=== PATIENT | female | born 1995 | race Caucasian/White ===

== ENCOUNTER → 2020-08-15 10:21 | Outpatient (BNVA) | payer BC, MEDICAID, SELFPAY | PROVIDERS: PCP Internal Medicine; Visit Provider Internal Medicine | DX: F11.99 Opioid use, unspecified with unspecified opioid-induced disorder (principal) | CPT/HCPCS: 80305 ==

== ENCOUNTER → 2020-08-21 11:23 | Outpatient (BNVA) | payer BC, MEDICAID, SELFPAY | PROVIDERS: Visit Provider Advanced Practice Midwife ==

== ENCOUNTER 2020-08-25 10:00 | Outpatient (REF) | payer BC, MEDICAID, SELFPAY ==
[2020-08-29 08:40] LABS: Fentanyl, Ur >500.0
[2020-08-29 08:41] LABS: Norfentanyl, Ur >500.0
== END 2020-08-25 10:01 | disposition home or self-care (01) ==
LOC: HO.LAB 10:00
PROVIDERS: Visit Provider Internal Medicine
DX: F11.99 Opioid use, unspecified with unspecified opioid-induced disorder (principal)
CPT/HCPCS: 80305; 80354

== ENCOUNTER → 2020-09-01 14:25 | Outpatient (BNVA) | payer BC, MEDICAID, SELFPAY | PROVIDERS: Visit Provider Internal Medicine ==

== ENCOUNTER → 2020-10-08 08:37 | Outpatient (BNVA) | payer BC, MEDICAID, SELFPAY | PROVIDERS: Visit Provider Advanced Practice Midwife ==

== ENCOUNTER 2021-02-11 21:49 | Emergency (ER) | payer MEDICAID, SELFPAY ==
--- NOTE | 2021-02-11 21:54 | ED_ITS ---
HPI - Overdose General Chief Complaint: Overdose Stated Complaint: overdose Time Seen by Provider: 02/11/21 21:54 Source: patient and EMS Mode of arrival: EMS Limitations: no limitations and other History of Present Illness MD complaint: accidental overdose Onset (ago): minute(s) Timing confirmed by: spouse Context: Accidental Overdose: wanted to get high Associated symptoms: nausea/vomiting Treatments Prior to Arrival: oxygen (bagged) and narcan (8mg IN by PD) Related Data Previous Rx's Medication Instructions Recorded naloxone 4 mg/actuation nasal 4 mg INTRANASAL Q2M PRN #2 ea 08/15/20 spray (Narcan) medroxyprogesterone 150 mg/mL 150 mg IM [id number] #1 ml 08/21/20 intramuscular suspension (Depo-Provera) valacyclovir 500 mg tablet 500 mg PO BID PRN 3 Days #30 tab 08/21/20 (Valtrex) buprenorphine 8 mg-naloxone 2 mg 2 film SUBLINGUAL DAILY 5 Days #10 09/01/20 sublingual film (Suboxone) ea lamotrigine 100 mg tablet 100 mg PO DAILY 90 Days #90 tab 09/11/20 (Lamictal) mirtazapine 30 mg tablet (Remeron) 30 mg PO BEDTIME 90 Days #90 tab 09/11/20 prazosin 2 mg capsule 4 mg PO BEDTIME 90 Days #180 cap 09/11/20 risperidone 0.5 mg tablet 0.5 mg PO DAILY PRN 90 Days #90 tab 09/11/20 risperidone 1 mg tablet 1 mg PO DAILY 90 Days #90 tab 09/11/20 risperidone 3 mg tablet 3 mg PO BEDTIME 90 Days #90 tab 09/11/20 propranolol 10 mg tablet 30 mg PO TID 30 Days #270 tab 10/10/20 Allergies Allergy/AdvReac Type Severity Reaction Status Date / Time No Known Allergies Allergy Verified 08/25/20 10:25 [No Known Allergies*] Review of Systems Review of Systems: Constitutional : No Weight loss, No Fever, No Chills, No Fatigue, No Malaise ENT/Mouth : No sore throat, No Rhinorrhea Eyes: No Eye Pain, No Swelling, No Redness Cardiovascular : No Chest Pain, No SOB, No Dyspnea on Exertion, No Orthopnea, No Edema, No Palpitations Respiratory : No Cough, No Sputum, No Wheezing Gastrointestinal : pos Nausea, No Vomiting, No Diarrhea, No Constipation, No abdominal Pain, No Hematochezia, No Melena Genitourinary : No Dysuria, No Urinary Frequency, No Hematuria, Musculoskeletal : No joint pain, No Myalgias, No Joint Swelling Skin : No Skin Lesions, No rash Neuro : No Weakness, No Numbness, No Dizziness, No Headache Psych : No Anxiety/Panic, No Depression, no SI Heme/Lymph: No Bruising, No Bleeding,No Lymphadenopathy Endocrine : No Polyuria, No Polydipsia All other systems reviewed and are negative [facility] Past Medical History Attestation statement: The following information was validated with the patient. Medical History Contraceptive management Depression HSV-1 (herpes simplex virus 1) infection Opioid use disorder Family History Family History Father Heart disease Thyroid cancer Mother No problems noted. Paternal Grandfather Cancer Maternal Grandfather Cancer Paternal Grandmother Cancer Social History Social History (Updated 02/11/21 @ 22:26 by Maria L Ervin DO) Alcohol intake: never Patient Tobacco Use Status: Current everyday Tobacco user Cigarette Packs Per Day: 1 Use of substances other than those prescribed or required for medical reasons: Yes Substance Use Type: Opiates Substance Use Frequency Other:: Joyce recently attended a detox and is scheduled to begin [facility] 02/12 Advance Directives: No Physical Exam Vital Signs: Vital Signs: Last Vital Signs Temp 97.9 F 02/11/21 22:01 Pulse 100 02/11/21 22:01 Resp 16 02/11/21 22:01 BP 112/71 02/11/21 22:01 Pulse Ox 98 02/11/21 22:01 BMI result Body Mass Index 18.3 Appearance: Alert. Oriented X3. No acute distress. Eyes: Pupils equal, round and reactive to light. ENT: Pharynx normal. Neck: Normal inspection. Neck supple. CVS: Normal heart rate and rhythm. Pulses normal. Redness noted to chest wall from sternal rub Respiratory: No respiratory distress. Breath sounds normal. Abdomen: Soft and nontender. Skin: Skin warm and dry. Normal skin color. Normal skin turgor. Extremities: No lower extremity edema. No calf ttp Neuro: Oriented X 3. No motor deficit. No sensory deficit. Course Course Course Narrative: spoke to recovery coaches has PHP tomorrow and plans to follow up with [facility] tomorrow normal O2 no need for repeat narcan in ED given narcan to go home with MDM - Overdose MDM Narrative Medical decision making narrative: 25 yo female with hx of opiate abuse here after accidental overdose - denies SI. She has good outpatient support but is not on MAT. Would talk to someone about possibly starting suboxone. At this time will observe in the ED and give ODT zofran as she reports some nausea. Dispo per observation. Discharge Plan Discharge Clinical Impression: Opiate overdose Patient Disposition: Home, Self-Care Instructions: Adult Overdose (ED) Additional Instructions: return to ED for any worsening symptoms or concerns please follow up with [facility] Prescriptions: No Action buprenorphine-naloxone [Suboxone] 8-2 mg film 2 film sublingual DAILY 5 Days Qty: 10 RF: 0 lamotrigine [Lamictal] 100 mg tablet 100 mg PO DAILY 90 Days Qty: 90 RF: 1 mirtazapine [Remeron] 30 mg tablet 30 mg PO BEDTIME 90 Days Qty: 90 RF: 0 prazosin 2 mg capsule 4 mg PO BEDTIME 90 Days Qty: 180 RF: 0 risperidone 3 mg tablet 3 mg PO BEDTIME 90 Days Qty: 90 RF: 0 risperidone 0.5 mg tablet 0.5 mg PO DAILY PRN (Reason: depression) 90 Days Qty: 90 RF: 0 risperidone 1 mg tablet 1 mg PO DAILY 90 Days Qty: 90 RF: 0 propranolol 10 mg tablet 30 mg PO TID 30 Days Qty: 270 RF: 0 Narcan 4 mg/actuation spray,non-aerosol 4 mg intranasal Q2M PRN (Reason: opioid overdose) Qty: 2 RF: 0 medroxyprogesterone [Depo-Provera] 150 mg/mL suspension 150 mg IM [id number] Qty: 1 RF: 3 valacyclovir [Valtrex] 500 mg tablet 500 mg PO BID PRN (Reason: antiviral) 3 Days Qty: 30 RF: 1
[2021-02-11 22:01] VITALS: BP 100/66; BP 112/71; PULSE 100; PULSE 110; RESP 16; TEMP 36.6; O2SAT 98; BMI 18.3
[2021-02-11] MEDS: Ondansetron ODT 4 MG TAB.RAPDIS TRANSLINGU (22:39)
--- NOTE | 2021-02-11 22:55 | MHC.CARE ---
CARE team met with pt for SUDE. Pt reports appears drowsy, but willing to talk about treatment options. She discusses that she starts PHP tomorrow- it is telehealth and reports that she doesn't recall where but she has to call in tomorrow morning. Pt is interested in suboxone and she wants to go to [facility] as it is closer to her house. Pt reports she has a therapist and psychiatrist. She was unwilling to discuss further. Pt was advised to contact [facility] tomorrow and if she has any questions she can call the CARE team to connect her with the recovery team.
[2021-02-12] MEDS: Naloxone HCl Nasal TAKE HOME 4 MG SPRAY NOSTRILALT (01:32)
--- NOTE | 2021-02-12 01:45 | PC.NURSE ---
I assumed care of this pt upon her arrival via EMS. On arrival she was awake, drowsy but otherwise alert and oriented x 3. She was calm and cooperative, makes eye contact with RN and denies SI/HI Since she arrived she has maintained a room air O2 sat of 95% or better. her RR has remained WNL (12-16), there hs not been cyanosis and the pt has not required any stimulation to remain alert and oriented x 3. her ex boyfriend has been present with her and she has met with the CARE team who is aware that she will begin PHP treatment tomorrow. iAyt this time she is discharged. She has taken PO food and fluids without difficulty. her gait is safe and steady. She verbalized an understanding of all DC orders. The pt and her ex boyfriend were instructed on how to use Narcan intranasally and they both demonstrated an understanding for its proper use. .
== END 2021-02-12 01:45 | disposition home or self-care (01) ==
PROVIDERS: Emergency Provider Emergency Medicine
DX: T40.1X1A Poisoning by heroin, accidental (unintentional), initial encounter (principal); Y92.9 Unspecified place or not applicable; Z79.899 Other long term (current) drug therapy; Z71.51 Drug abuse counseling and surveillance of drug abuser; Z87.891 Personal history of nicotine dependence
CPT/HCPCS: 99283; 99285

== ENCOUNTER 2021-05-09 16:06 | Emergency (ER) | payer BC, MEDICAID, SELFPAY ==
[2021-05-09 16:26] VITALS: BP 143/91; PULSE 95; RESP 16; TEMP 36.6; O2SAT 97; BMI 27.4
== END 2021-05-09 19:33 | disposition left against medical advice (07) ==
PROVIDERS: Emergency Provider Emergency Medicine
DX: R13.10 Dysphagia, unspecified (principal)
CPT/HCPCS: 99281; 99282

== ENCOUNTER 2021-05-27 13:32 | Inpatient (IN) | payer OTHER, SELFPAY ==
--- NOTE | 2021-05-27 | ECG_ITS ---
Test Reason : MED CLEARANCE Blood Pressure : / mmHG Vent. Rate : 083 BPM Atrial Rate : 083 BPM P-R Int : 156 ms QRS Dur : 078 ms QT Int : 374 ms P-R-T Axes : 036 082 063 degrees QTc Int : 439 ms Normal sinus rhythm Early repolarization Normal ECG When compared with ECG of 01-DEC-2016 13:15, No significant change was found Referred By: Tim Patricia Electronically Signed By:HUSSEIN SANDOVAL
--- NOTE | ~2021-05-27 | XR_ITS ---
EXAMINATION: XR hand wrist LT CLINICAL INFORMATION: Point tenderness. The location of the point tenderness was not provided. COMPARISON: None. TECHNIQUE: 3 views of the left hand and wrist. FINDINGS: 5 mm negative ulnar variance. 2 linear metallic opacities are seen in the lateral volar soft tissues. These could represent radiopaque foreign bodies such as needle fragments. Diffuse osteopenia. No fracture or dislocation. Normal mineralization and alignment. XR/XR hand wrist LT IMPRESSION: No acute osseous abnormality. 2 linear metallic opacities are seen in the lateral volar soft tissues measuring 6 mm and 9 mm in length. These could represent radiopaque foreign bodies such as needle fragments.
--- NOTE | 2021-05-27 13:48 | ED_ITS ---
HPI - Psych General Chief Complaint: Psychiatric Symptoms Stated Complaint: CRISIS,UNCOOPERATIVE Time Seen by Provider: 05/27/21 13:34 Source: patient Mode of arrival: EMS Limitations: other (agitated) History of Present Illness MD complaint: other (paranoid, possible drug abuse, not taking medications, flashbacks, agitated, not sleeping) Onset (ago): week(s) (3) Duration: getting worse History of same: Yes Relieving factors: none Context: not taking psychiatric medications Associated psychiatric symptoms: racing thoughts Associated symptoms: insomnia Treatments prior to arrival: placed on mental health hold (S12 inpatient bed se arch) Related Data Previous Rx's Medication Instructions Recorded naloxone 4 mg/actuation nasal 4 mg INTRANASAL Q2M PRN #2 ea 08/15/20 spray (Narcan) medroxyprogesterone 150 mg/mL 150 mg IM [id number] #1 ml 08/21/20 intramuscular suspension (Depo-Provera) valacyclovir 500 mg tablet 500 mg PO BID PRN 3 Days #30 tab 08/21/20 (Valtrex) buprenorphine 8 mg-naloxone 2 mg 2 film SUBLINGUAL DAILY 5 Days #10 09/01/20 sublingual film (Suboxone) ea lamotrigine 100 mg tablet 100 mg PO DAILY 90 Days #90 tab 09/11/20 (Lamictal) mirtazapine 30 mg tablet (Remeron) 30 mg PO BEDTIME 90 Days #90 tab 09/11/20 prazosin 2 mg capsule 4 mg PO BEDTIME 90 Days #180 cap 09/11/20 risperidone 0.5 mg tablet 0.5 mg PO DAILY PRN 90 Days #90 tab 09/11/20 risperidone 1 mg tablet 1 mg PO DAILY 90 Days #90 tab 09/11/20 risperidone 3 mg tablet 3 mg PO BEDTIME 90 Days #90 tab 09/11/20 propranolol 10 mg tablet 30 mg PO TID 30 Days #270 tab 10/10/20 Allergies Allergy/AdvReac Type Severity Reaction Status Date / Time No Known Allergies Allergy Verified 08/25/20 10:25 [No Known Allergies*] Review of Systems Review of Systems: ROS unable to be obtained due to agitation PMFSH Past Medical History Attestation statement: The following information was validated with the patient. Medical History Contraceptive management Depression HSV-1 (herpes simplex virus 1) infection Opioid use disorder Family History Family History Father Heart disease Thyroid cancer Mother No problems noted. Paternal Grandfather Cancer Maternal Grandfather Cancer Paternal Grandmother Cancer Social History Social History Alcohol intake: never Patient Tobacco Use Status: Current everyday Tobacco user Cigarette Packs Per Day: 1 Substance Use Type: Opiates Advance Directives: Yes Advance Directives on File: Yes Advance Directives Date on File: 05/27/21 Physical Exam Vital Signs: Vital Signs: Last Vital Signs Temp 98.7 F 05/27/21 13:55 Pulse 70 05/27/21 13:55 Resp 14 05/27/21 13:55 BP 143/70 H 05/27/21 13:55 Pulse Ox 98 05/27/21 13:55 BMI result Body Mass Index 26.6 Appearance: Alert. Oriented X3. No acute distress. Agitated intermittently crying then somewhat sedated appears under the influence Eyes: Pupils equal, round and reactive to light. 3mm ENT: Pharynx normal. Neck: Normal inspection. Neck supple. CVS: Normal heart rate and rhythm. Pulses normal. Respiratory: No respiratory distress. Breath sounds normal. Abdomen: Atraumatic Skin: Skin warm and dry. Normal skin color. Normal skin turgor. ? bruising in R AC no abscess seen Extremities: No lower extremity edema. Neuro: Oriented X 3. No motor deficit. No sensory deficit. Will not participate in neuro exam for CN Course Course Course Narrative: Physician observation started at 222pm Patient placed in physician observation because the patient needed more time for medical clearance and bed placement after inpatient bed search. At the time observation was started the patient's vitals were stable, patient is alert and oriented but slightly agitated, Neuro: nonfocal, CV RRR, Lungs clear signed out pending labs and workup to oncoming provider MDM - Psych MDM Narrative Medical decision making narrative: 26 yo female with hx of depression, PTSD, substance abuse issues here with c/o not taking medications and having flashbacks. She was seen by [facility] in the community, refused medications per their note, paranoid, disoriented at times, high risk behaviors - she is already section 12. Will medically clear the patient. PO ativan for her anxiety Lab Data Labs: Lab Results 05/27/21 Range/Units 13:35 COVID-19 ([facility]) Negative (Negative) COVID-19 Clin Com See Note Discharge Plan Discharge Clinical Impression: Acute anxiety, Chronic post-traumatic stress disorder, Medical non-compliance Patient Disposition: Still a Patient Prescriptions: No Action buprenorphine-naloxone [Suboxone] 8-2 mg film 2 film sublingual DAILY 5 Days Qty: 10 0RF lamotrigine [Lamictal] 100 mg tablet 100 mg PO DAILY 90 Days Qty: 90 1RF mirtazapine [Remeron] 30 mg tablet 30 mg PO BEDTIME 90 Days Qty: 90 0RF prazosin 2 mg capsule 4 mg PO BEDTIME 90 Days Qty: 180 0RF risperidone 3 mg tablet 3 mg PO BEDTIME 90 Days Qty: 90 0RF risperidone 0.5 mg tablet 0.5 mg PO DAILY PRN (Reason: depression) 90 Days Qty: 90 0RF risperidone 1 mg tablet 1 mg PO DAILY 90 Days Qty: 90 0RF propranolol 10 mg tablet 30 mg PO TID 30 Days Qty: 270 0RF Narcan 4 mg/actuation spray,non-aerosol 4 mg intranasal Q2M PRN (Reason: opioid overdose) Qty: 2 0RF Rx Instructions: spray 1 dose into ONE nostril; alternate nostrils w each dose until help arrives medroxyprogesterone [Depo-Provera] 150 mg/mL suspension 150 mg IM [id number] Qty: 1 3RF valacyclovir [Valtrex] 500 mg tablet 500 mg PO BID PRN (Reason: antiviral) 3 Days Qty: 30 1RF Rx Instructions: take with onset on of symptoms, take for three days, may repeat dosing per episode prn
--- NOTE | 2021-05-27 13:52 | PC.NURSE ---
CHIKI/MARYJO HARRELL [phone] WITH ANY INFO OR QUESTIONS
[2021-05-27 13:55] VITALS: BP 143/70; PULSE 70; RESP 14; TEMP 37.1; O2SAT 98; BMI 26.6
[2021-05-27 14:13] LABS: COVID-19 Test Negative (Negative)
--- NOTE | 2021-05-27 16:20 | PC.NURSE ---
pt refused to have labs drawn when approached by t/w. will reapproach later. rn leatha aware.
[2021-05-27] MEDS: LORazepam 1 MG TABLET PO (18:01)
[2021-05-27 20:28] LABS: UPreg QC Valid YES; Urine Pregnancy NEGATIVE (NEGATIVE)
[2021-05-27 20:42] LABS: Amphetamine Screen Urine Not Detected (Not Detect); Barbiturates, Urine Not Detected (Not Detect); Benzodiazepines Screen Urine POSITIVE (Not Detect); Cannabinoid Screen Urine POSITIVE (Not Detect); Cocaine Screen Urine POSITIVE (Not Detect); Fentanyl, urine Not Detected (Not Detect); Opiate Screen Urine Not Detected (Not Detect); Phencyclidine Screen Urine Not Detected (Not Detect)
[2021-05-27 20:59] LABS: Appearance Urine TURBID; Color Urine YELLOW; Glucose Urine UA NEG (NEG); Leukocyte Esterase Urine 1+ (NEG); Nitrite Urine NEG (NEG); UACC Culture Trigger YES; Urine Blood 3+ (NEG); Urine Ketones NEG (NEG); Urine Protein 1+ MG/DL (NEG-TRACE)
[2021-05-27 21:10] LABS: Amorphous Sediment Urine 4+ /LPF; Bacteria Urine 1+ /LPF; Mucus Urine 3+ /LPF; RBC Urine 0-2 /HPF (0); Squamous Epithelial Cell Urine 3+ /LPF
[2021-05-27 21:36] LABS: MANUAL DIFF FLAG NO
[2021-05-27 21:40] LABS: Basophils Percent Auto 0.2 % (0-2); Eosinophils Absolute Auto 0.2 X10*3/uL (0.0-0.4); Eosinophils Percent Auto 1.9 % (0-4); Hematocrit 40.4 % (37.0-47.0); Hemoglobin 13.4 g/dl (12.0-16.0); Imm Gran Abs Auto 0.01 X10*3/uL (0.00-0.03); Imm Gran Pct Auto 0.1 % (0.0-0.4); Lymphocytes Absolute Auto 2.6 X10*3/uL (1.2-4.9); Lymphocytes Percent Auto 32.1 % (20-40); Mean Corpuscular HGB Conc 33.2 g/dl (31.0-35.0); Mean Corpuscular Hemoglobin 30.7 pg (27.0-33.0); Mean Corpuscular Volume 92.4 fL (80.0-98.0); Mean Platelet Volume 11.3 fL (9.4-12.3); Monocytes Absolute Auto 0.7 X10*3/uL (0.1-1.2); Monocytes Percent Auto 8.9 % (2-11); Neutrophils Absolute Auto 4.6 x10*3/uL (2.0-8.3); Neutrophils Percent Auto 56.8 % (45-73); Platelet Count 233 X10*3/uL (160-400); Red Blood Count 4.37 X10*6/uL (4.20-5.50); Red Cell Distribution Width 12.4 % (11.0-16.0); White Blood Count 8.1 X10*3/uL (4.8-10.8)
[2021-05-27 21:53] LABS: Ethanol < 10 mg/dL
[2021-05-27 21:57] LABS: Alanine Aminotransferase 12 U/L (0-31); Albumin Level 3.9 g/dL (3.5-5.0); Alkaline Phosphatase 49 U/L (39-117); Anion Gap 12 (12-20); Aspartate Amino Transferase 11 U/L (5-31); Bilirubin Direct < 0.2 mg/dL (0.0-0.5); Bilirubin Total < 0.2 mg/dL (0.0-1.0); Blood Urea Nitrogen 8 mg/dL (9-16); Calcium 9.1 mg/dL (8.4-10.2); Carbon Dioxide 25 mmol/L (22-29); Chloride 107 mmol/L (96-108); Creatinine Clr Calc Pharmacy 101.8; Estimated Glomerular Filt Rate > 60; Glucose Random 93 mg/dL (60-115); Sodium 140 mmol/L (135-145); Total Protein 6.3 g/dL (6.5-8.0)
[2021-05-27 23:06] VITALS: BP 113/65; PULSE 80; RESP 18; TEMP 36.7; O2SAT 97
--- NOTE | 2021-05-28 01:08 | PC.ADMIT ---
Pt is a 26y/o female admitted on CV for Inpatient Level of care after Pt was evaluated in the community and found to be unsafe due to Disorganized thoughts and continued aggression. Pt had to be restraint while being transported to [facility] secondary to increased aggression with the police. Pt's father reports that pt is convinced that some people are in the basement looking for her and walking in the driveway. Pt had been off her meds for 3weeks and had relapsed on substances. Pt alert and sleepy, Vital signs stable. Pt is Covid negative, Tox positive for: Cocaine, Marijuana, Benzos. Pt is sleepy and therefore makes it difficult to get admission assessment completed with her. Speech is normal with normal tone, rhythm and curt. Pt denies SI/Hi at this time. Low depression reported. admission orders obtained.
[2021-05-28 01:26] VITALS: BP 113/65; PULSE 80; RESP 18; TEMP 36.7; O2SAT 97
[2021-05-28] MEDS: risperiDONE 1 MG TABLET PO (02:26)
[2021-05-28 09:21] LABS: Alanine Aminotransferase 11 U/L (0-31); Albumin Level 3.7 g/dL (3.5-5.0); Alkaline Phosphatase 46 U/L (39-117); Anion Gap 12 (12-20); Aspartate Amino Transferase 12 U/L (5-31); Bilirubin Total 0.3 mg/dL (0.0-1.0); Blood Urea Nitrogen 10 mg/dL (9-16); Carbon Dioxide 22 mmol/L (22-29); Chloride 110 mmol/L (96-108); Cholesterol 119 mg/dL; Creatinine Clr Calc Pharmacy 109.6; Estimated Glomerular Filt Rate > 60; Glucose Fasting 90 mg/dL (60-99); HDL Cholesterol 30 mg/dL; LDL Cholesterol Calculated 77 mg/dl; Potassium 4.3 mmol/L (3.3-5.1); Sodium 140 mmol/L (135-145); Total Protein 6.1 g/dL (6.5-8.0); Triglycerides 62 mg/dL
[2021-05-28 10:59] LABS: Reflex LDLD? No
[2021-05-28 12:00] VITALS: BP 182/80; PULSE 86; TEMP 36.8
[2021-05-28] MEDS: Acetaminophen 325 MG TABLET 650 MG PO ×2 (12:47→21:17)
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
--- NOTE | 2021-05-28 13:56 | PC.NURSE ---
pt signed 3 day notice, up 06/02
[2021-05-28 16:00] VITALS: BP 110/68; PULSE 80; RESP 16; TEMP 37.4
[2021-05-28] MEDS: ARIPiprazole 10 MG TABLET PO (18:43)
[2021-05-28 20:00] VITALS: BP 105/59; PULSE 95; RESP 16; TEMP 37.4; O2SAT 98
[2021-05-28] MEDS: hydrOXYzine HCL 25 MG TABLET PO (21:17)
[2021-05-28] MEDS: Nicotine Polacrilex 2 MG GUM 4 MG BUCCAL (22:27)
--- NOTE | 2021-05-28 22:45 | PC.NURSE ---
Pt declined to provide urine sample , declined to sign legal paper work
[2021-05-29 06:57] VITALS: BP 104/68; PULSE 72; RESP 14; TEMP 36.9; O2SAT 97
[2021-05-29] MEDS: ARIPiprazole 15 MG TABLET PO (09:31)
[2021-05-29] MEDS: Propranolol HCL 10 MG TABLET PO ×2 (09:31→15:45)
[2021-05-29 12:00] VITALS: BP 98/54; PULSE 94; TEMP 36.7
[2021-05-29] MEDS: Nicotine Polacrilex 2 MG GUM 4 MG BUCCAL (13:02)
[2021-05-29 14:59] LABS: UPreg QC Valid YES; Urine Pregnancy NEGATIVE (NEGATIVE)
[2021-05-29] MEDS: Acetaminophen 325 MG TABLET 650 MG PO (18:04)
--- NOTE | 2021-05-29 19:38 | HO.PSYCHPN ---
Subjective Subjective Date of Service: 05/29/21 Reason For Visit: Psychosis Interim History: Patient seen and discussed with team. I evaluated the pt this evening and upon inquiry, pt wants to know why she is no longer on lamictal or buspar and asks for her previous med regimen to be restored, as she reports positive benefit. Per pt, she currently has high anxiety and she is shaky, tearful, says she feels like she is ?crawling out of my skin.?. Discloses that prior to coming to [facility], she was taking a friend?s benzodiazepine prescription, using 20 mg valium every six hours, likely in withdrawal from benzos.? In the milieu, patient is safe and appropriate in behavior. Denies SI/SIB/HI upon inquiry. Denies irritability or assaultive ideation. Says he feels safe. Medication Compliance: Yes Side effects from medications: No Attending Groups: No Review of Systems Acute medical concerns: No Medical Review of Systems: unchanged Mental Status Exam Mental Status Exam Narrative: Pt is alert and oriented; behavior is anxious, agitated; patient is not in distress; dressed in hospital gown, disheveled; mood is described as not good; minimal eye contact appropriate; Speech is normal rate, volume and prosody and not pressured; no psychomotor agitation/retardation present; thought process is organized and goal directed; Thought content is on tx; otherwise pertinent to relevant topics and without any delusional content, paranoid ideations or grandiosity; denies any SI/HI. There is no evidence of perceptual disturbance. ?Patients insight and judgment are impaired but likely adequate. Diagnostics Vital Signs (24Hr): Vital Signs - 24 hr 05/28/21 20:00 05/29/21 06:57 05/29/21 12:00 Temperature 99.3 F 98.4 F 98.1 F Pulse Rate 95 72 94 Respiratory Rate 16 14 Blood Pressure 105/59 L 104/68 98/54 L Pulse Oximetry 98 97 BMI result Body Mass Index 26.6 Labs Results: 05/27/21 21:31 05/28/21 08:13 Labs: Laboratory Results - last 48 hr 05/27/21 05/27/21 05/27/21 20:14 20:14 20:14 WBC RBC Hgb Hct MCV MCH MCHC RDW Plt Count MPV Immature Gran % (Auto) Neut % (Auto) Lymph % (Auto) [place] % (Auto) Eos % (Auto) Baso % (Auto) Lymph # (Auto) [place] # (Auto) Eos # (Auto) Baso # (Auto) Abs Immat Gran (auto) Absolute Neuts (auto) Absolute Nucleated RBC Nucleated RBC % (auto) Sodium Potassium Chloride Carbon Dioxide Anion Gap BUN Creatinine Estim Creat Clear Calc Estimated GFR Random Glucose Fasting Glucose Calcium Total Bilirubin Direct Bilirubin AST ALT Alkaline Phosphatase Total Protein Albumin Triglycerides Cholesterol LDL Cholesterol, Calc HDL Cholesterol Urine Color YELLOW Urine Appearance TURBID Urine pH 7.0 Ur Specific [place] 1.010 Urine Protein 1+ H Urine Glucose (UA) NEG Urine Ketones NEG Urine Blood 3+ H Urine Nitrite NEG Ur Leukocyte Esterase 1+ H Urine RBC 0-2 Urine WBC 10-14 H Ur Squamous Epith Cells 3+ Amorphous Sediment 4+ Urine Bacteria 1+ Granular Casts 1-4 Urine Mucus 3+ Urine Test NEGATIVE Urine Opiates Screen Not Detected Urine Fentanyl Screen Not Detected Ur Barbiturates Screen Not Detected Ur Phencyclidine Scrn Not Detected Ur Amphetamines Screen Not Detected U Benzodiazepines Scrn POSITIVE H Urine Cocaine Screen POSITIVE H U Marijuana (THC) Screen POSITIVE H Ethyl Alcohol 05/27/21 05/27/21 05/27/21 21:31 21:31 21:31 WBC 8.1 RBC 4.37 Hgb 13.4 Hct 40.4 MCV 92.4 MCH 30.7 MCHC 33.2 RDW 12.4 Plt Count 233 MPV 11.3 Immature Gran % (Auto) 0.1 Neut % (Auto) 56.8 Lymph % (Auto) 32.1 [place] % (Auto) 8.9 Eos % (Auto) 1.9 Baso % (Auto) 0.2 Lymph # (Auto) 2.6 [place] # (Auto) 0.7 Eos # (Auto) 0.2 Baso # (Auto) 0.0 Abs Immat Gran (auto) 0.01 Absolute Neuts (auto) 4.6 Absolute Nucleated RBC 0.000 Nucleated RBC % (auto) 0.0 Sodium 140 Potassium 4.0 Chloride 107 Carbon Dioxide 25 Anion Gap 12 BUN 8 L Creatinine 0.85 Estim Creat Clear Calc 101.8 Estimated GFR > 60 Random Glucose 93 Fasting Glucose Calcium 9.1 Total Bilirubin < 0.2 Direct Bilirubin < 0.2 AST 11 ALT 12 Alkaline Phosphatase 49 Total Protein 6.3 L Albumin 3.9 Triglycerides Cholesterol LDL Cholesterol, Calc HDL Cholesterol Urine Color Urine Appearance Urine pH Ur Specific [place] Urine Protein Urine Glucose (UA) Urine Ketones Urine Blood Urine Nitrite Ur Leukocyte Esterase Urine RBC Urine WBC Ur Squamous Epith Cells Amorphous Sediment Urine Bacteria Granular Casts Urine Mucus Urine Test Urine Opiates Screen Urine Fentanyl Screen Ur Barbiturates Screen Ur Phencyclidine Scrn Ur Amphetamines Screen U Benzodiazepines Scrn Urine Cocaine Screen U Marijuana (THC) Screen Ethyl Alcohol < 10 05/28/21 05/29/21 08:13 Unknown WBC RBC Hgb Hct MCV MCH MCHC RDW Plt Count MPV Immature Gran % (Auto) Neut % (Auto) Lymph % (Auto) [place] % (Auto) Eos % (Auto) Baso % (Auto) Lymph # (Auto) [place] # (Auto) Eos # (Auto) Baso # (Auto) Abs Immat Gran (auto) Absolute Neuts (auto) Absolute Nucleated RBC Nucleated RBC % (auto) Sodium 140 Potassium 4.3 Chloride 110 H Carbon Dioxide 22 Anion Gap 12 BUN 10 Creatinine 0.79 Estim Creat Clear Calc 109.6 Estimated GFR > 60 Random Glucose Fasting Glucose 90 Calcium 9.0 Total Bilirubin 0.3 Direct Bilirubin AST 12 ALT 11 Alkaline Phosphatase 46 Total Protein 6.1 L Albumin 3.7 Triglycerides 62 Cholesterol 119 LDL Cholesterol, Calc 77 HDL Cholesterol 30 Urine Color Urine Appearance Urine pH Ur Specific [place] Urine Protein Urine Glucose (UA) Urine Ketones Urine Blood Urine Nitrite Ur Leukocyte Esterase Urine RBC Urine WBC Ur Squamous Epith Cells Amorphous Sediment Urine Bacteria Granular Casts Urine Mucus Urine Test NEGATIVE Urine Opiates Screen Urine Fentanyl Screen Ur Barbiturates Screen Ur Phencyclidine Scrn Ur Amphetamines Screen U Benzodiazepines Scrn Urine Cocaine Screen U Marijuana (THC) Screen Ethyl Alcohol Medications Medications Current Medications Acetaminophen (Acetaminophen 325 Mg Tablet) 650 mg PO Q6H PRN PRN Reason: Headache/Pain Mild Scale (1-3) Last Admin: 05/29/21 18:04 Dose: 650 mg Documented by: Al Hydroxide/Mg Hydroxide (Magnesium Hydrox/Alum Hydrox 30 Ml Oral.Susp) 30 ml PO Q6H PRN PRN Reason: Heartburn/Nausea Aripiprazole (Aripiprazole 30 Mg Tablet) 30 mg PO DAILY LESLY Benztropine Mesylate (Benztropine Mesylate 0.5 Mg Tablet) 0.5 mg PO BID PRN PRN Reason: EPS Benztropine Mesylate (Benztropine Mesylate 1 Mg Tablet) 1 mg PO BID LESLY Buspirone HCl (Buspirone Hcl 10 Mg Tablet) 30 mg PO BID@0800,1400 LESLY Clonazepam (Clonazepam 1 Mg Tablet) 1 mg PO Q6H PRN PRN Reason: anxiety Hydroxyzine HCl (Hydroxyzine Hcl 25 Mg Tablet) 25 mg PO BEDTIME PRN PRN Reason: Anxiety Last Admin: 05/28/21 21:17 Dose: 25 mg Documented by: Lamotrigine (Lamotrigine 25 Mg Tablet) 50 mg PO DAILY LESLY Magnesium Hydroxide (Milk Of Magnesia 30 Ml Oral.Susp) 30 ml PO DAILY PRN PRN Reason: Constipation Melatonin (Melatonin 3 Mg Tablet) 3 mg PO BEDTIME LESLY Mirtazapine (Mirtazapine 15 Mg Tablet) 15 mg PO BEDTIME LESLY Nicotine (Nicotine 21 Mg Patch.Td24) 21 mg TRANSDERMA DAILY LESLY Nicotine Polacrilex (Nicotine Polacrilex 2 Mg Gum) 4 mg BUCCAL Q1H PRN PRN Reason: Nicotine Cravings Last Admin: 05/29/21 13:02 Dose: 4 mg Documented by: Prazosin HCl (Prazosin Hcl 1 Mg Capsule) 4 mg PO BEDTIME LESLY; Protocol Propranolol HCl (Propranolol Hcl [place] 80 Mg Cap.Sa.24h) 80 mg PO DAILY LESLY; Protocol Trazodone HCl (Trazodone Hcl 100 Mg Tablet) 100 mg PO BEDTIME LESLY Allergies Allergies Allergy/AdvReac Type Severity Reaction Status Date / Time No Known Allergies Allergy Verified 08/25/20 10:25 [No Known Allergies*] Assessment & Plan Assessment & Plan (1) Chronic post-traumatic stress disorder: Status: Acute Code(s): F43.12 - Post-traumatic stress disorder, chronic (2) Cocaine abuse: Status: Acute Code(s): F14.10 - Cocaine abuse, uncomplicated (3) Polysubstance abuse: Status: Acute Code(s): F19.10 - Other psychoactive substance abuse, uncomplicated Plan pt is a 26 yo female with hx of PTSD with extensive, severe trauma history, substance abuse who presents to ED after father called crisis saying patient was disorganized and paranoid. Pt denies SI/HI/AVH. -she has been off medications of 2 weeks; denies any SI/HI/AVH or depression; extensive substance abuse clouds the picture but recent PTSD exacerbation is likely a major contributor to behaviors at home. On the unit pt is irritable, but is overall in behavioral/impulse control with organized behavior, speech, no manic symptoms and no obvious psychotic symptoms. Will need to get collateral to further assess. PLAN CV dc risperdal; pt says was not supposed to be on this and has been started on Abilify reStart abilify restart Mirtazapine restart Prazosin (titrate to 2mg) restart propranolol restart mirtazapine 30mg Pt off Lamictal 200mg for 2 weeks; this is likely not an ideal med for her due to intermittent compliance so will hold of restarting U/A borderline but w/out dysuria; ED provider decided to not start antibiotics; will monitor for dysuria past due for Vivitrol collateral 05/29/21: Restore med regimen to previous dosages due to reported benefit. Re-start buspar and lamictal at 50 mg QD per pt request. Pt had U/A and microbio of strep agalactiae group B. Consulted with infectious disease specialist, who reports tx only indicated if pt is complaining of hematuria, abdominal pain, or urinary burning I spent minutes with the patient and/or on the patient floor today, greater than?50% of which was spent counseling/coordinating care. Reason for contiued inpatient stay Substantial Risk for: rapid decompensation and med/psych decompensation
[2021-05-29 19:45] VITALS: BP 107/54; PULSE 89; TEMP 36.2
[2021-05-29] MEDS: clonazePAM 1 MG TABLET 2 MG PO (19:48)
[2021-05-29] MEDS: Prazosin HCL 1 MG CAPSULE 4 MG PO (19:49)
[2021-05-29] MEDS: traZODone HCL 100 MG TABLET PO (19:49)
[2021-05-29] MEDS: Mirtazapine 15 MG TABLET PO (19:49)
[2021-05-29] MEDS: Benztropine Mesylate 1 MG TABLET PO (19:49)
[2021-05-29] MEDS: Melatonin 3 MG TABLET PO (19:49)
[2021-05-30 08:49] VITALS: BP 106/59; PULSE 77; TEMP 36.6
[2021-05-30] MEDS: busPIRone HCl 10 MG TABLET 30 MG PO ×2 (09:12→14:46)
[2021-05-30] MEDS: Benztropine Mesylate 1 MG TABLET PO ×2 (09:12→20:03)
[2021-05-30] MEDS: lamoTRIgine 25 MG TABLET 50 MG PO (09:12)
[2021-05-30] MEDS: ARIPiprazole 30 MG TABLET PO (09:12)
[2021-05-30] MEDS: Nicotine 21 MG PATCH.TD24 TRANSDERMA (09:52)
[2021-05-30] MEDS: clonazePAM 1 MG TABLET PO ×2 (09:54→20:04)
[2021-05-30] MEDS: Benzocaine 20 % Oral Gel 9 GM TUBE 1 APPL MUCOUS MEM (09:54)
--- NOTE | 2021-05-30 09:54 | P.PNPSI_ITS ---
Subjective Subjective Date of Service: 05/30/21 Reason For Visit: Psychosis Subjective Notes: Conditional Voluntary Interim History: Patient was seen and discussed in rounds today. She continues to be isolative and withdrawn. Some confusion exhibited at times. Attending no groups. Eating and sleeping adequately. She has no major complaints other than some crawling feeling in her scan. No overt signs of withdrawals. She has not been on any medications for 2 weeks prior to coming into the hospital. No changes were made today Review of Systems Review of Systems Except for some crawling feelings in her skin Yes all other systems are reviewed and are negative Mental Status Exam Mental Status Exam Narrative: In today's visit she is alert, oriented and pleasant. Normal speech. Little eye contact. She was laying in bed. She was able to respond appropriately to questions. States that at times she feels a little confused. No signs of psychosis. No SI. Cognitively she appears to be intact. Judgment is intact Diagnostics Vital Signs (24Hr): Vital Signs - 24 hr 05/29/21 12:00 05/29/21 19:45 05/30/21 08:49 Temperature 98.1 F 97.1 F 97.9 F Pulse Rate 94 89 77 Blood Pressure 98/54 L 107/54 L 106/59 L BMI result Body Mass Index 26.6 Labs Results: 05/27/21 21:31 05/28/21 08:13 Labs: Laboratory Results - last 48 hr 05/29/21 Unknown Urine Test NEGATIVE Imaging Radiology Impressions: ITS Impressions Hand/Wrist X-Ray 05/29/21 20:09 IMPRESSION: No acute osseous abnormality. 2 linear metallic opacities are seen in the lateral volar soft tissues measuring 6 mm and 9 mm in length. These could represent radiopaque foreign bodies such as needle fragments. Medications Medications Current Medications Acetaminophen (Acetaminophen 325 Mg Tablet) 650 mg PO Q6H PRN PRN Reason: Headache/Pain Mild Scale (1-3) Last Admin: 05/29/21 18:04 Dose: 650 mg Documented by: Al Hydroxide/Mg Hydroxide (Magnesium Hydrox/Alum Hydrox 30 Ml Oral.Susp) 30 ml PO Q6H PRN PRN Reason: Heartburn/Nausea Aripiprazole (Aripiprazole 30 Mg Tablet) 30 mg PO DAILY [facility] Last Admin: 05/30/21 09:12 Dose: 30 mg Documented by: Benzocaine (Benzocaine 20 % Oral Gel 9 Gm Tube) 1 appl MUCOUS MEM QID PRN; Protocol PRN Reason: dental pain Benztropine Mesylate (Benztropine Mesylate 0.5 Mg Tablet) 0.5 mg PO BID PRN PRN Reason: EPS Benztropine Mesylate (Benztropine Mesylate 1 Mg Tablet) 1 mg PO BID [facility] Last Admin: 05/30/21 09:12 Dose: 1 mg Documented by: Buspirone HCl (Buspirone Hcl 10 Mg Tablet) 30 mg PO BID@0800,1400 [facility] Last Admin: 05/30/21 09:12 Dose: 30 mg Documented by: Clonazepam (Clonazepam 1 Mg Tablet) 1 mg PO Q6H PRN PRN Reason: anxiety Hydroxyzine HCl (Hydroxyzine Hcl 25 Mg Tablet) 25 mg PO BEDTIME PRN PRN Reason: Anxiety Last Admin: 05/28/21 21:17 Dose: 25 mg Documented by: Lamotrigine (Lamotrigine 25 Mg Tablet) 50 mg PO DAILY [facility] Last Admin: 05/30/21 09:12 Dose: 50 mg Documented by: Magnesium Hydroxide (Milk Of Magnesia 30 Ml Oral.Susp) 30 ml PO DAILY PRN PRN Reason: Constipation Melatonin (Melatonin 3 Mg Tablet) 3 mg PO BEDTIME [facility] Last Admin: 05/29/21 19:49 Dose: 3 mg Documented by: Mirtazapine (Mirtazapine 15 Mg Tablet) 15 mg PO BEDTIME [facility] Last Admin: 05/29/21 19:49 Dose: 15 mg Documented by: Nicotine (Nicotine 21 Mg Patch.Td24) 21 mg TRANSDERMA DAILY [facility] Nicotine Polacrilex (Nicotine Polacrilex 2 Mg Gum) 4 mg BUCCAL Q1H PRN PRN Reason: Nicotine Cravings Last Admin: 05/29/21 13:02 Dose: 4 mg Documented by: Prazosin HCl (Prazosin Hcl 1 Mg Capsule) 4 mg PO BEDTIME [facility]; Protocol Last Admin: 05/29/21 19:49 Dose: 4 mg Documented by: Propranolol HCl (Propranolol Hcl La 80 Mg Cap.Sa.24h) 80 mg PO DAILY [facility]; Protocol Last Admin: 05/30/21 09:50 Dose: Not Given Documented by: Trazodone HCl (Trazodone Hcl 100 Mg Tablet) 100 mg PO BEDTIME [facility] Last Admin: 05/29/21 19:49 Dose: 100 mg Documented by: Allergies Allergies Allergy/AdvReac Type Severity Reaction Status Date / Time No Known Allergies Allergy Verified 08/25/20 10:25 [No Known Allergies*] Assessment & Plan Assessment & Plan (1) Chronic post-traumatic stress disorder: Status: Acute Code(s): F43.12 - Post-traumatic stress disorder, chronic (2) Cocaine abuse: Status: Acute Code(s): F14.10 - Cocaine abuse, uncomplicated (3) Polysubstance abuse: Status: Acute Code(s): F19.10 - Other psychoactive substance abuse, uncomplicated Plan pt is a 26 yo female with hx of PTSD with extensive, severe trauma history, substance abuse who presents to ED after father called crisis saying patient was disorganized and paranoid. Pt denies SI/HI/AVH. -she has been off medications of 2 weeks; denies any SI/HI/AVH or depression; extensive substance abuse clouds the picture but recent PTSD exacerbation is likely a major contributor to behaviors at home. On the unit pt is irritable, but is overall in behavioral/impulse control with organized behavior, speech, no manic symptoms and no obvious psychotic symptoms. Will need to get collateral to further assess. PLAN CV dc risperdal; pt says was not supposed to be on this and has been started on Abilify reStart abilify restart Mirtazapine restart Prazosin (titrate to 2mg) restart propranolol restart mirtazapine 30mg Pt off Lamictal 200mg for 2 weeks; this is likely not an ideal med for her due to intermittent compliance so will hold of restarting U/A borderline but w/out dysuria; ED provider decided to not start antibiotics; will monitor for dysuria past due for Vivitrol collateral 05/29/21: Restore med regimen to previous dosages due to reported benefit. Re- start buspar and lamictal at 50 mg QD per pt request. Pt had U/A and microbio of strep agalactiae group B. Consulted with infectious disease specialist, who reports tx only indicated if pt is complaining of hematuria, abdominal pain, or urinary burning 05/30/2021: Continue current regimen and plans with no changes implemented today I spent minutes with the patient and/or on the patient floor today, greater than?50% of which was spent counseling/coordinating care. Reason for contiued inpatient stay Substantial Risk for: med/psych decompensation
[2021-05-30 12:00] VITALS: BP 101/57; PULSE 73; RESP 18; O2SAT 98
[2021-05-30 16:00] VITALS: BP 108/62; PULSE 87; RESP 18; TEMP 36.8
[2021-05-30 20:00] VITALS: BP 116/73; PULSE 88; RESP 18; TEMP 36.5
[2021-05-30] MEDS: Melatonin 3 MG TABLET PO (20:03)
[2021-05-30] MEDS: Prazosin HCL 1 MG CAPSULE 4 MG PO (20:03)
[2021-05-30] MEDS: traZODone HCL 100 MG TABLET PO (20:03)
[2021-05-30] MEDS: Mirtazapine 15 MG TABLET PO (20:03)
[2021-05-30] MEDS: Nicotine Polacrilex 2 MG GUM 4 MG BUCCAL (20:04)
[2021-05-31 08:46] VITALS: BP 101/58; PULSE 79; RESP 16; TEMP 36.8; O2SAT 98
[2021-05-31] MEDS: busPIRone HCl 10 MG TABLET 30 MG PO ×2 (08:55→14:10)
[2021-05-31] MEDS: Propranolol HCL LA 80 MG CAP.SA.24H PO (08:55)
[2021-05-31] MEDS: Benztropine Mesylate 1 MG TABLET PO ×2 (08:55→20:59)
[2021-05-31] MEDS: ARIPiprazole 30 MG TABLET PO (08:56)
[2021-05-31] MEDS: lamoTRIgine 25 MG TABLET 50 MG PO (08:56)
[2021-05-31] MEDS: Nicotine 21 MG PATCH.TD24 TRANSDERMA (08:58)
[2021-05-31] MEDS: Benzocaine 20 % Oral Gel 9 GM TUBE 1 APPL MUCOUS MEM ×2 (09:01→18:29)
--- NOTE | 2021-05-31 09:01 | HO.PSYCHPN ---
Subjective Subjective Date of Service: 05/31/21 Reason For Visit: Psychosis Subjective Notes: Conditional Voluntary Healthcare Proxy: No Guardianship: No Interim History: Patient was seen and discussed in rounds today.? She is doing a little better and has been less disorganized. She continues to be isolative and in her room most of the day. She is now on 15 minute checks. She continues to be depressed and anxious. She feels ?less weak?. She continues to have trouble sleeping and I increased her trazodone again to 150 mg. Eating adequately. No other changes were made Medication Compliance: Yes Side effects from medications: No Review of Systems Review of Systems Sleep Yes all other systems are reviewed and are negative Mental Status Exam Mental Status Exam Narrative: In today's visit she is alert, oriented and pleasant. Normal speech. Better eye contact. She was laying in bed. She was able to respond appropriately to questions. States that at times she feels a little confused. No signs of psychosis. No SI. Cognitively she appears to be intact. Judgment is intact Diagnostics Vital Signs (24Hr): Vital Signs - 24 hr 05/30/21 12:00 05/30/21 16:00 05/30/21 20:00 Temperature 98.3 F 97.7 F Pulse Rate 73 87 88 Respiratory Rate 18 18 18 Blood Pressure 101/57 L 108/62 116/73 Pulse Oximetry 98 05/31/21 08:46 Temperature 98.3 F Pulse Rate 79 Respiratory Rate 16 Blood Pressure 101/58 L Pulse Oximetry 98 BMI result Body Mass Index 26.6 Labs Results: 05/27/21 21:31 05/28/21 08:13 Labs: Laboratory Results - last 48 hr 05/29/21 Unknown Urine Test NEGATIVE Imaging Radiology Impressions: ITS Impressions Hand/Wrist X-Ray 05/29/21 20:09 IMPRESSION: No acute osseous abnormality. 2 linear metallic opacities are seen in the lateral volar soft tissues measuring 6 mm and 9 mm in length. These could represent radiopaque foreign bodies such as needle fragments. Medications Medications Current Medications Acetaminophen (Acetaminophen 325 Mg Tablet) 650 mg PO Q6H PRN PRN Reason: Headache/Pain Mild Scale (1-3) Last Admin: 05/29/21 18:04 Dose: 650 mg Documented by: Al Hydroxide/Mg Hydroxide (Magnesium Hydrox/Alum Hydrox 30 Ml Oral.Susp) 30 ml PO Q6H PRN PRN Reason: Heartburn/Nausea Aripiprazole (Aripiprazole 30 Mg Tablet) 30 mg PO DAILY [facility] Last Admin: 05/31/21 08:56 Dose: 30 mg Documented by: Benzocaine (Benzocaine 20 % Oral Gel 9 Gm Tube) 1 appl MUCOUS MEM QID PRN; Protocol PRN Reason: dental pain Last Admin: 05/30/21 09:54 Dose: 1 appl Documented by: Benztropine Mesylate (Benztropine Mesylate 0.5 Mg Tablet) 0.5 mg PO BID PRN PRN Reason: EPS Benztropine Mesylate (Benztropine Mesylate 1 Mg Tablet) 1 mg PO BID [facility] Last Admin: 05/31/21 08:55 Dose: 1 mg Documented by: Buspirone HCl (Buspirone Hcl 10 Mg Tablet) 30 mg PO BID@0800,1400 [facility] Last Admin: 05/31/21 08:55 Dose: 30 mg Documented by: Clonazepam (Clonazepam 1 Mg Tablet) 1 mg PO Q6H PRN PRN Reason: anxiety Last Admin: 05/30/21 20:04 Dose: 1 mg Documented by: Hydroxyzine HCl (Hydroxyzine Hcl 25 Mg Tablet) 25 mg PO BEDTIME PRN PRN Reason: Anxiety Last Admin: 05/28/21 21:17 Dose: 25 mg Documented by: Lamotrigine (Lamotrigine 25 Mg Tablet) 50 mg PO DAILY [facility] Last Admin: 05/31/21 08:56 Dose: 50 mg Documented by: Magnesium Hydroxide (Milk Of Magnesia 30 Ml Oral.Susp) 30 ml PO DAILY PRN PRN Reason: Constipation Melatonin (Melatonin 3 Mg Tablet) 3 mg PO BEDTIME [facility] Last Admin: 05/30/21 20:03 Dose: 3 mg Documented by: Mirtazapine (Mirtazapine 15 Mg Tablet) 15 mg PO BEDTIME [facility] Last Admin: 05/30/21 20:03 Dose: 15 mg Documented by: Nicotine (Nicotine 21 Mg Patch.Td24) 21 mg TRANSDERMA DAILY [facility] Last Admin: 05/31/21 08:58 Dose: 21 mg Documented by: Nicotine Polacrilex (Nicotine Polacrilex 2 Mg Gum) 4 mg BUCCAL Q1H PRN PRN Reason: Nicotine Cravings Last Admin: 05/30/21 20:04 Dose: 4 mg Documented by: Prazosin HCl (Prazosin Hcl 1 Mg Capsule) 4 mg PO BEDTIME [facility]; Protocol Last Admin: 05/30/21 20:03 Dose: 4 mg Documented by: Propranolol HCl (Propranolol Hcl La 80 Mg Cap.Sa.24h) 80 mg PO DAILY [facility]; Protocol Last Admin: 05/31/21 08:55 Dose: 80 mg Documented by: Trazodone HCl (Trazodone Hcl 100 Mg Tablet) 100 mg PO BEDTIME [facility] Last Admin: 05/30/21 20:03 Dose: 100 mg Documented by: Allergies Allergies Allergy/AdvReac Type Severity Reaction Status Date / Time No Known Allergies Allergy Verified 08/25/20 10:25 [No Known Allergies*] Assessment & Plan Assessment & Plan (1) Chronic post-traumatic stress disorder: Status: Acute Code(s): F43.12 - Post-traumatic stress disorder, chronic (2) Cocaine abuse: Status: Acute Code(s): F14.10 - Cocaine abuse, uncomplicated (3) Polysubstance abuse: Status: Acute Code(s): F19.10 - Other psychoactive substance abuse, uncomplicated Plan pt is a 26 yo female with hx of PTSD with extensive, severe trauma history, substance abuse who presents to ED after father called crisis saying patient was disorganized and paranoid. Pt denies SI/HI/AVH. -she has been off medications of 2 weeks; denies any SI/HI/AVH or depression; extensive substance abuse clouds the picture but recent PTSD exacerbation is likely a major contributor to behaviors at home. On the unit pt is irritable, but is overall in behavioral/impulse control with organized behavior, speech, no manic symptoms and no obvious psychotic symptoms. Will need to get collateral to further assess. PLAN CV dc risperdal; pt says was not supposed to be on this and has been started on Abilify reStart abilify restart Mirtazapine restart Prazosin (titrate to 2mg) restart propranolol restart mirtazapine 30mg Pt off Lamictal 200mg for 2 weeks; this is likely not an ideal med for her due to intermittent compliance so will hold of restarting U/A borderline but w/out dysuria; ED provider decided to not start antibiotics; will monitor for dysuria past due for Vivitrol collateral 05/29/21: Restore med regimen to previous dosages due to reported benefit. Re-start buspar and lamictal at 50 mg QD per pt request. Pt had U/A and microbio of strep agalactiae group B. Consulted with infectious disease specialist, who reports tx only indicated if pt is complaining of hematuria, abdominal pain, or urinary burning 05/30/2021: Continue current regimen and plans with no changes implemented today 05/31/2021: Continue current regimen and plans with increase of trazodone to 150 mg I spent minutes with the patient and/or on the patient floor today, greater than?50% of which was spent counseling/coordinating care. Reason for contiued inpatient stay Substantial Risk for: other
[2021-05-31] MEDS: Nicotine Polacrilex 2 MG GUM 4 MG BUCCAL (09:02)
[2021-05-31] MEDS: clonazePAM 1 MG TABLET PO ×2 (09:02→18:29)
[2021-05-31] MEDS: Acetaminophen 325 MG TABLET 650 MG PO (09:02)
[2021-05-31] MEDS: Melatonin 3 MG TABLET PO (20:59)
[2021-05-31 21:00] VITALS: BP 118/73; PULSE 87; TEMP 36.5
[2021-05-31] MEDS: traZODone HCL 50 MG TABLET 150 MG PO (21:00)
[2021-05-31] MEDS: Mirtazapine 15 MG TABLET PO (21:00)
[2021-05-31] MEDS: Prazosin HCL 1 MG CAPSULE 4 MG PO (21:01)
[2021-06-01] MEDS: busPIRone HCl 10 MG TABLET 30 MG PO ×2 (07:58→12:25)
[2021-06-01] MEDS: ARIPiprazole 30 MG TABLET PO (07:59)
[2021-06-01] MEDS: Benztropine Mesylate 1 MG TABLET PO (07:59)
[2021-06-01] MEDS: lamoTRIgine 25 MG TABLET 50 MG PO (07:59)
[2021-06-01] MEDS: Propranolol HCL LA 80 MG CAP.SA.24H PO (07:59)
[2021-06-01 08:00] VITALS: BP 111/63; PULSE 74; RESP 16; TEMP 36.9; O2SAT 98
[2021-06-01] MEDS: Nicotine 21 MG PATCH.TD24 TRANSDERMA (08:08)
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
[2021-06-01] MEDS: Naloxone HCl Nasal TAKE HOME 4 MG SPRAY NOSTRILALT (12:26)
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
== END 2021-06-01 13:25 | disposition home or self-care (01) | DRG 755 ==
LOC: HO.ED 14:34 → HO.PM5 23:13
PROVIDERS: Admitting Provider Psychiatry & Neurology Psychiatry; Emergency Provider Emergency Medicine; Visit Provider Psychiatry & Neurology Psychiatry
DX: F43.12 Post-traumatic stress disorder, chronic (principal); Z91.14 Patient's other noncompliance with medication regimen; F13.139 Sedative, hypnotic or anxiolytic abuse with withdrawal, unspecified; F14.10 Cocaine abuse, uncomplicated; F19.10 Other psychoactive substance abuse, uncomplicated; F17.210 Nicotine dependence, cigarettes, uncomplicated; Z20.822 Contact with and (suspected) exposure to COVID-19; Z71.6 Tobacco abuse counseling; Z79.3 Long term (current) use of hormonal contraceptives; Z79.899 Other long term (current) drug therapy
CPT/HCPCS: 36415; 73110; 73130; 80048; 80053; 80061; 80076; 80307; 81001; 81025; 82077; 85025; 87086; 87147; 87635; 93005; 99285

== ENCOUNTER 2022-05-05 09:56 | Emergency (ER) | payer MEDICAID, SELFPAY ==
--- NOTE | ~2022-05-05 | CT_ITS ---
EXAMINATION: CT ABDOMEN AND PELVIS WITHOUT CONTRAST CLINICAL INFORMATION: Abdominal pain, vomiting blood COMPARISON: None TECHNIQUE: Multidetector volumetric imaging was performed from the superior aspect of the liver through the pubic symphysis. Sagittal and coronal reformatted images were obtained on the technologist's workstation. This CT examination was performed using dose optimization techniques as appropriate, variously including the following: *Automated exposure control *Adjustment of mA and/or kV according to patient size (this includes techniques or standardized protocols for targeted exams where dose is matched to indication/reason for exam; i.e. extremities or head) *Use of iterative reconstruction technique DLP: 708 mGy-cm FINDINGS: LUNG BASES: The visualized lung bases are unremarkable. LIVER, GALLBLADDER, AND BILIARY TREE: The liver is normal in size, shape, and attenuation. No focal hepatic lesion or biliary ductal dilatation is present. The gallbladder is unremarkable with no evidence of radiopaque gallstones, gallbladder wall thickening, or obvious pericholecystic inflammatory changes. PANCREAS: Unremarkable. SPLEEN: Unremarkable. ADRENAL GLANDS: Unremarkable. KIDNEYS AND URETERS: The kidneys are normal in size, shape, and attenuation. There is a tiny 2 mm punctate left lower pole renal calculus (8:289). No hydronephrosis, hydroureter, or calculi seen. No perinephric stranding. BLADDER: Unremarkable. GASTROINTESTINAL TRACT: A tiny hiatal hernia is present. The small and large bowel are unremarkable. The appendix is unremarkable. ABDOMINAL WALL: No significant hernia is appreciated. LYMPH NODES: No retroperitoneal lymphadenopathy. VASCULAR: Unremarkable. PELVIC VISCERA: The uterus and adnexa are unremarkable. OSSEOUS STRUCTURES: Unremarkable. CT/CT abdomen pelvis wo IV con IMPRESSION: 1. A cause for the patient's abdominal pain and vomiting has not been found. 2. Incidental note made of a tiny hiatal hernia and a tiny punctate nonobstructing left renal calculus. Fleischner guidelines were followed.
--- NOTE | ~2022-05-05 | CT_ITS ---
EXAMINATION: CT HEAD WITHOUT CONTRAST CLINICAL INFORMATION: Fall, trauma, pain COMPARISON: None TECHNIQUE: Contiguous axial imaging was performed from the skull base to vertex without intravenous administration of contrast. Additional 2-D coronal and sagittal reformatted images are generated on the CT workstation and uploaded to PACS. This CT examination was performed using dose optimization techniques as appropriate, variously including the following: *Automated exposure control *Adjustment of mA and/or kV according to patient size (this includes techniques or standardized protocols for targeted exams where dose is matched to indication/reason for exam; i.e. extremities or head) *Use of iterative reconstruction technique DLP: 560 mGy-cm FINDINGS: There is no intracranial hemorrhage, hematoma, or extra-axial fluid collection. The ventricles are normal in size. There is no hydrocephalus, edema, or mass effect. The weinberg-white matter differentiation appears well preserved . 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 There is no visible acute territorial infarct or mass lesion. The calvarium appears intact. There is no pneumocephalus or orbital emphysema. The visualized sinuses and middle ears and mastoid air cells show no significant mucosal thickening. There are no air-fluid levels. CT/CT head/brain wo IV con IMPRESSION: No acute intracranial abnormality.
[2022-05-05 10:26] VITALS: BP 128/78; PULSE 98; RESP 16; TEMP 36.1; O2SAT 97; BMI 34.9
--- NOTE | 2022-05-05 10:46 | ED.GENADULT ---
HPI - General Adult General Chief complaint: General Medical Stated complaint: vomitting blood Time Seen by Provider: 05/05/22 10:45 Source: patient Mode of arrival: ambulatory Limitations: no limitations History of Present Illness HPI narrative: Pt is a 27y/o female with stated PMHx of seizures and GERD presents with vomiting blood since last night. Pt states she had an epileptic seizure last night around 9pm, unwitnessed but mother was home. Pt states after the seizure she found herself on the floor with head pain and profuse bleeding from the nose. Pt states after bleeding stopped, she experienced an episode of projectile vomiting of blood around 12 midnight. Pt describes the blood as dark in color. Pt states she vomited several more times over the course of the night and web press roll tender but could not specifically quantify. Pt denies anything like this in the past. Pt states she has not been taking GERD medications- omeprazole and sucralfate. Pt states she needs refills on all seizure medications but has not been able to find a neurologist. Severity: mild Severity scale (1-10): 2 Relieving factors: none Exacerbating factors: none Associated symptoms: seizure (last night) Treatments prior to arrival: none Related Data Previous Rx's Medication Instructions Recorded naloxone 4 mg/actuation nasal 4 mg intranasal Q2M PRN opioid 08/15/20 spray (Narcan) overdose #2 ea medroxyprogesterone 150 mg/mL 150 mg IM [id number] #1 mL 08/21/20 intramuscular suspension (Depo-Provera) aripiprazole 30 mg tablet (Abilify) 30 mg PO DAILY 30 days #30 tabs 06/01/21 benzocaine 20 % mucosal gel 1 appl mucous membrane QID PRN 06/01/21 (Anbesol (benzocaine) Maximum dental pain 15 days #9 grams Strength) benztropine 1 mg tablet 1 mg PO BID PRN EPS 30 days #60 06/01/21 tabs buspirone 30 mg tablet 30 mg PO BID 30 days #60 tabs 06/01/21 chlorpromazine 50 mg tablet 50 mg PO BID PRN panic 30 days #30 06/01/21 tabs melatonin 3 mg tablet 3 mg PO BEDTIME 30 days #30 tabs 06/01/21 mirtazapine 15 mg tablet 15 mg PO BEDTIME 30 days #30 tabs 06/01/21 nicotine (polacrilex) 2 mg gum 4 mg buccal Q1H PRN Nicotine 06/01/21 Cravings 30 days #100 ea prazosin 2 mg capsule 4 mg PO BEDTIME 30 days #60 caps 06/01/21 propranolol 80 mg capsule,24 80 mg PO DAILY 30 days #30 caps 06/01/21 hr,extended release trazodone 50 mg tablet 150 mg PO BEDTIME 30 days #90 tabs 06/01/21 Allergies Allergy/AdvReac Type Severity Reaction Status Date / Time No Known Allergies Allergy Verified 08/25/20 10:25 [No Known Allergies*] Review of Systems Constitutional: Constitutional: Denies chills, Denies fever(s), Denies night sweats and Reports poor appetite Eyes: Eyes: Reports no additional eye complaints, Denies blurry vision, Denies change in vision, Denies diplopia, Denies eye discharge, Denies loss of vision and Denies eye pain ENT: Denies dizziness Cardiovascular: Cardiovascular: Reports no additional cardiovascular complaints, Denies chest pain, Denies lightheadedness, Denies Loss of Consciousness and Denies dyspnea Respiratory: Respiratory: Reports no additional respiratory complaints and Denies dyspnea Gastrointestinal: Gastrointestinal: Denies abdominal pain, Denies melena, Denies hematochezia, Denies change in bowel habits, Denies change in stool character, Reports early satiety, Reports nausea and Reports hematemesis (darkly colored blood) Genitourinary: Genitourinary: Denies hematuria, Denies urinary frequency, Denies dysuria, Denies urinary incontinence, Denies urinary hesitancy and Denies urinary urgency Musculoskeletal: Musculoskeletal: Reports no additional musculoskeletal complaints, Denies numbness and Denies tingling Neurologic: Denies dizziness, Denies loss of vision, Denies numbness, Reports seizure-like activity (reported h/o seizures, most recent last night around 9pm) and Denies tingling Psychiatric: Psychiatric: Reports no additional psychiatric complaints Endocrine: Endocrine: Reports no additional endocrine complaints Hematologic/Lymphatic: Hematologic/Lymphatic: Reports no additional hematologic/lymphatic complaints Allergic/Immunologic: Allergic/Immunologic: Reports no additional allergic/immunologic complaints PMFSH Past Medical History Attestation statement: The following information was validated with the patient. Source: old records reviewed and nursing notes reviewed Medical History Borderline personality disorder Cocaine abuse Contraceptive management Depression HSV-1 (herpes simplex virus 1) infection Medical non-compliance Opioid use disorder Polysubstance abuse Family History Family History Father Heart disease Thyroid cancer Mother No problems noted. Paternal Grandfather Cancer Maternal Grandfather Cancer Paternal Grandmother Cancer Social History Social History Household Members: Family and Other Housing: House Do you presently have visiting nurse or other home services: No Alcohol intake: never Patient Tobacco Use Status: Current someday Tobacco user Cigarette Packs Per Day: 1 Substance Use Type: Crack/Cocaine, Heroin, Marijuana, Methamphetamine and Caffiene Advance Directives: Yes Advance Directives on File: Yes Advance Directives Date on File: 05/27/21 service: No Physical Exam ED Vital Signs: Vital Signs - 24 hr 05/05/22 10:26 Temperature 97 F Pulse Rate 98 Respiratory Rate 16 Blood Pressure 128/78 Pulse Oximetry 97 Oxygen Delivery Method Room Air BMI result Body Mass Index 34.9 Const General: cooperative, no acute distress, alert and awake Nutritional Appearance: well nourished Orientation/consciousness: patient oriented x3 Limitations: no limitations HENMT Head: Yes normal to inspection and Yes atraumatic Ears: hearing grossly normal bilaterally and external ears normal General nose exam: Normal external nose present, no nasal discharge noted and no epistaxis Face and sinus: Yes normal facial exam, No abrasion and No laceration Mouth: Normal oral and palatal mucosa present, no drooling and no muffled voice Eyes General: appearance normal, both eyes and all related structures Periorbital: periorbital findings normal Eyelids: Yes eyelids normal Conjunctivae: conjunctivae normal Pupils: Equal, round and reactive pupils present EOM: EOMs intact bilaterally Neck Neck: Yes normal visual inspection, Yes full ROM and Yes no lymphadenopathy Chest Chest palpation & inspection: normal inspection of the chest Resp Effort & Inspection: normal respiratory effort and able to speak in complete sentences Auscultation: clear to auscultation bilaterally GI Inspection: Yes normal to inspection Palpation (GI): Soft to palpation and Tenderness to palpation present (GI) in the epigastrum and in the LUQ Neuro General: patient oriented x3 and moves all extremities Cranial nerves: Yes Equal, round and reactive pupils present Cognition (Neuro): normal cognition Motor exam (neuro): 5/5 motor strength present throughout Sensory Exam: Normal double simultaneous stimulation for sensation Coordination: [id number] test normal Extrem General: Yes normal to inspection, Yes full ROM and Yes capillary refill normal Psych Appearance: grossly normal Mental Status: mental status grossly normal Affect: normal affect Attitude: cooperative Thought process: Normal thought process present Thought content: Normal thought content present Insight: Good insight present (Psych) Medications Administered Discontinued Medications Generic Name Dose Route Start Last Admin Trade Name Aleksanderq PRN Reason Stop Dose Admin Al Hydroxide/Mg Hydroxide 15 ml 05/05/22 11:05 05/05/22 11:41 Magnesium Hydrox/Alum Hydrox 30 Ml Oral.Susp PO 05/05/22 11:06 15 ml ONCE ONE Administration Sodium Chloride 1,000 mls @ 999 mls/hr 05/05/22 11:15 05/05/22 12:42 Ns IV 05/05/22 12:15 Infused .Q1H1M LESLY Infusion Levetiracetam 1,000 mg 05/05/22 11:05 05/05/22 11:41 Levetiracetam 1,000 Mg Tablet PO 05/05/22 11:06 1,000 mg ONCE ONE Administration Ondansetron HCl 4 mg 05/05/22 11:05 05/05/22 11:41 Ondansetron Hcl 4 Mg/2 Ml Vial IVPUSH 05/05/22 11:06 4 mg ONCE ONE Administration Pantoprazole Sodium 40 mg 05/05/22 11:05 05/05/22 11:41 Pantoprazole Sodium 40 Mg/10 Ml Vial IVPUSH 05/05/22 11:06 40 mg ONCE ONE Administration Medical Decision Making Medical Decision Making [facility] Narrative: Patient is a 27 year old assigned female at with a history of GERD, seizures, and multiple psychiatric conditions presenting to the emergency department today with nausea, vomiting, and requesting a lorazepam refill. Patient's physical exam was unremarkable. Patient's blood work was unremarkable. Patient's head and abdomen/pelvis CTs showed no acute process. Upon reevaluation, patient expressed that she really just needs a refill of her lorazepam as she does still have her seizure medications. I explained my physical exam findings as well as all test results to the patient. I answered all questions asked by the patient. I stressed the importance of the patient taking her medication as prescribed. I stressed the importance of the patient following up with her primary care provider. I stressed the importance of the patient returning to the emergency department immediately if her symptoms were to worsen or if she were to develop any dizziness, shortness of breath, difficulty breathing, chest pain, blurry vision, loss of vision, nausea, vomiting, abdominal pain, fever, chills, back pain, or any other complaints. Patient verbalized agreement and understanding with this treatment plan and discharge. Differential Diagnosis Differential Diagnoses: The differential diagnosis associated with the presentation includes medication refill Lab Data MDM Lab Attestation statement: I reviewed the patient's lab results. 05/05/22 10:47 05/05/22 10:47 Labs: Lab Results 05/05/22 05/05/22 05/05/22 Range/Units 10:47 10:47 11:39 WBC 9.8 (4.8-10.8) X10*3/uL RBC 4.73 (4.20-5.50) X10*6/uL Hgb 13.9 (12.0-16.0) g/dl Hct 42.1 (37.0-47.0) % MCV 89.0 (80.0-98.0) fL MCH 29.4 (27.0-33.0) pg MCHC 33.0 (31.0-35.0) g/dl RDW 12.7 (11.0-16.0) % Plt Count 180 (160-400) X10*3/uL MPV Not Reportable Immature Gran % (Auto) 0.5 H (0.0-0.4) % Neut % (Auto) 69.7 (45-73) % Lymph % (Auto) 22.2 (20-40) % [place] % (Auto) 6.5 (2-11) % Eos % (Auto) 0.8 (0-4) % Baso % (Auto) 0.3 (0-2) % Lymph # (Auto) 2.2 (1.2-4.9) X10*3/uL [place] # (Auto) 0.6 (0.1-1.2) X10*3/uL Eos # (Auto) 0.1 (0.0-0.4) X10*3/uL Baso # (Auto) 0.0 (0.0-0.2) X10*3/uL Abs Immat Gran (auto) 0.05 H (0.00-0.03) X10*3/uL Absolute Neuts (auto) 6.8 (2.0-8.3) x10*3/uL Absolute Nucleated RBC 0.000 (0.0-0.012) X10*3/uL Nucleated RBC % (auto) 0.0 (0.0-0.2) /100WBC Smear Tech's Comments VERIFIED Sodium 141 (135-145) mmol/L Potassium 4.1 (3.3-5.1) mmol/L Chloride 110 H (96-108) mmol/L Carbon Dioxide 20 L (22-29) mmol/L Anion Gap 15 (12-20) BUN 11 (9-16) mg/dL Creatinine 0.87 (0.5-1.4) mg/dL Estim Creat Clear Calc 112.8 Estimated GFR > 60 Random Glucose 166 H (60-115) mg/dL Lactic Acid 1.2 (0.5-2.0) mmol/L Calcium 9.0 (8.4-10.2) mg/dL Total Bilirubin 0.4 (0.0-1.0) mg/dL AST 23 (5-31) U/L ALT 28 (0-31) U/L Alkaline Phosphatase 77 (39-117) U/L Total Protein 6.6 (6.5-8.0) g/dL Albumin 4.1 (3.5-5.0) g/dL Beta HCG, Quant < 2 mIU/mL Urine Color Urine Appearance Urine pH (5.0-9.0) Ur Specific Wiggins (1.005-1.025) Urine Protein (Neg-Trace) mg/dL Urine Glucose (UA) (Negative) mg/dL Urine Ketones (Negative) mg/dL Urine Blood (Negative) Urine Nitrite (Negative) Ur Leukocyte Esterase (Negative) Urine RBC (0-2) /HPF Urine WBC (0-5) /HPF Ur Squamous Epith Cells (0-2) /HPF Urine Bacteria (None Seen) Hyaline Casts (0-2) /LPF Urine Opiates Screen (Not Detect) Urine Fentanyl Screen (Not Detect) Ur Barbiturates Screen (Not Detect) Ur Phencyclidine Scrn (Not Detect) Ur Amphetamines Screen (Not Detect) U Benzodiazepines Scrn (Not Detect) Urine Cocaine Screen (Not Detect) U Marijuana (THC) Screen (Not Detect) 05/05/22 05/05/22 Range/Units 14:45 14:46 WBC (4.8-10.8) X10*3/uL RBC (4.20-5.50) X10*6/uL Hgb (12.0-16.0) g/dl Hct (37.0-47.0) % MCV (80.0-98.0) fL MCH (27.0-33.0) pg MCHC (31.0-35.0) g/dl RDW (11.0-16.0) % Plt Count (160-400) X10*3/uL MPV Immature Gran % (Auto) (0.0-0.4) % Neut % (Auto) (45-73) % Lymph % (Auto) (20-40) % [place] % (Auto) (2-11) % Eos % (Auto) (0-4) % Baso % (Auto) (0-2) % Lymph # (Auto) (1.2-4.9) X10*3/uL [place] # (Auto) (0.1-1.2) X10*3/uL Eos # (Auto) (0.0-0.4) X10*3/uL Baso # (Auto) (0.0-0.2) X10*3/uL Abs Immat Gran (auto) (0.00-0.03) X10*3/uL Absolute Neuts (auto) (2.0-8.3) x10*3/uL Absolute Nucleated RBC (0.0-0.012) X10*3/uL Nucleated RBC % (auto) (0.0-0.2) /100WBC Smear Tech's Comments Sodium (135-145) mmol/L Potassium (3.3-5.1) mmol/L Chloride (96-108) mmol/L Carbon Dioxide (22-29) mmol/L Anion Gap (12-20) BUN (9-16) mg/dL Creatinine (0.5-1.4) mg/dL Estim Creat Clear Calc Estimated GFR Random Glucose (60-115) mg/dL Lactic Acid (0.5-2.0) mmol/L Calcium (8.4-10.2) mg/dL Total Bilirubin (0.0-1.0) mg/dL AST (5-31) U/L ALT (0-31) U/L Alkaline Phosphatase (39-117) U/L Total Protein (6.5-8.0) g/dL Albumin (3.5-5.0) g/dL Beta HCG, Quant mIU/mL Urine Color Yellow Urine Appearance Turbid Urine pH 8.5 (5.0-9.0) Ur Specific [place] 1.010 (1.005-1.025) Urine Protein Negative (Neg-Trace) mg/dL Urine Glucose (UA) Negative (Negative) mg/dL Urine Ketones Negative (Negative) mg/dL Urine Blood Negative (Negative) Urine Nitrite Negative (Negative) Ur Leukocyte Esterase Trace H (Negative) Urine RBC 0-2 (0-2) /HPF Urine WBC 0-5 (0-5) /HPF Ur Squamous Epith Cells 3-5 (0-2) /HPF Urine Bacteria None Seen (None Seen) Hyaline Casts 0-2 (0-2) /LPF Urine Opiates Screen Not Detected (Not Detect) Urine Fentanyl Screen Not Detected (Not Detect) Ur Barbiturates Screen Not Detected (Not Detect) Ur Phencyclidine Scrn Not Detected (Not Detect) Ur Amphetamines Screen Not Detected (Not Detect) U Benzodiazepines Scrn Not Detected (Not Detect) Urine Cocaine Screen POSITIVE H (Not Detect) U Marijuana (THC) Screen POSITIVE H (Not Detect) Radiology Impression Radiologist Impression: My interpretation is in agreement with the radiologist's impression of these imaging studies. EXAMINATION: CT HEAD WITHOUT CONTRAST CLINICAL INFORMATION: Fall, trauma, pain? COMPARISON: None TECHNIQUE: Contiguous axial imaging was performed from the skull base to vertex without intravenous administration of contrast.? Additional 2-D coronal and sagittal reformatted images are generated on the CT workstation and uploaded to PACS. This CT examination was performed using dose optimization techniques as appropriate, variously including the following: *Automated exposure control *Adjustment of mA and/or kV according to patient size (this includes techniques or standardized protocols for targeted exams where dose is matched to indication/reason for exam; i.e. extremities or head) *Use of iterative reconstruction technique DLP: 560 mGy-cm FINDINGS: There is no intracranial hemorrhage, hematoma, or extra-axial fluid collection.? The ventricles are normal in size. There is no hydrocephalus, edema, or mass effect.? The weinberg-white matter differentiation appears well preserved .? 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 There is no visible acute territorial infarct or mass lesion. The calvarium appears intact. There is no pneumocephalus or orbital emphysema.? The visualized sinuses and middle ears and mastoid air cells show no significant mucosal thickening. There are no air-fluid levels. CT/CT head/brain wo IV con IMPRESSION: No acute intracranial abnormality. Dictated By: Alden Yi MD Signed By: Electronically signed by Alden Yi MD 05/05/22 1455 EXAMINATION: CT ABDOMEN AND PELVIS WITHOUT CONTRAST? CLINICAL INFORMATION: Abdominal pain, vomiting blood? COMPARISON: None? TECHNIQUE: Multidetector volumetric imaging was performed from the superior aspect of the liver through the pubic symphysis. Sagittal and coronal reformatted images were obtained on the technologist's workstation.? This CT examination was performed using dose optimization techniques as appropriate, variously including the following: *Automated exposure control *Adjustment of mA and/or kV according to patient size (this includes techniques or standardized protocols for targeted exams where dose is matched to indication/reason for exam; i.e. extremities or head) *Use of iterative reconstruction technique DLP: 708 mGy-cm FINDINGS: LUNG BASES: The visualized lung bases are unremarkable.? LIVER, GALLBLADDER, AND BILIARY TREE: The liver is normal in size, shape, and attenuation. No focal hepatic lesion or biliary ductal dilatation is present. The gallbladder is unremarkable with no evidence of radiopaque gallstones, gallbladder wall thickening, or obvious pericholecystic inflammatory changes.? PANCREAS: Unremarkable.? SPLEEN: Unremarkable.? ADRENAL GLANDS: Unremarkable.? KIDNEYS AND URETERS: The kidneys are normal in size, shape, and attenuation. There is a tiny 2 mm punctate left lower pole renal calculus (8:289). No hydronephrosis, hydroureter, or calculi seen. No perinephric stranding. ? BLADDER: Unremarkable.? GASTROINTESTINAL TRACT: A tiny hiatal hernia is present. The small and large bowel are unremarkable. The appendix is unremarkable.? ABDOMINAL WALL: No significant hernia is appreciated.? LYMPH NODES: No retroperitoneal lymphadenopathy. VASCULAR: Unremarkable. PELVIC VISCERA: The uterus and adnexa are unremarkable.? OSSEOUS STRUCTURES: Unremarkable.? CT/CT abdomen pelvis wo IV con IMPRESSION: 1.? A cause for the patient's abdominal pain and vomiting has not been found. 2.? Incidental note made of a tiny hiatal hernia and a tiny punctate nonobstructing left renal calculus. ? Fleischner guidelines were followed. Dictated By: Alden Breen MD Signed By: Electronically signed by Alden Breen MD 05/05/22 7834 Discharge Plan Discharge Clinical Impression: Vomiting Patient Disposition: Home, Self-Care Instructions: Acute Nausea and Vomiting (ED) Additional Instructions: Follow up with your primary care provider and a GI specialist. Return to the emergency department immediately if your symptoms worsen or if you develop any dizziness, shortness of breath, difficulty breathing, chest pain, blurry vision, loss of vision, nausea, vomiting, abdominal pain, fever, chills, back pain, or any other complaints. Prescriptions: No Action nicotine (polacrilex) 2 mg Gum 4 mg buccal Q1H PRN (Reason: Nicotine Cravings) 30 Days Qty: 100 0RF propranolol 80 mg Capsule,Extended Release 24 Hr 80 mg PO DAILY 30 Days Qty: 30 0RF Protocol: Hold for SBP/HR < HOLD for SBP < : 90 HOLD for HR < : 60 aripiprazole [Abilify] 30 mg Tablet 30 mg PO DAILY 30 Days Qty: 30 0RF benztropine 1 mg Tablet 1 mg PO BID PRN (Reason: EPS) 30 Days Qty: 60 0RF buspirone 30 mg tablet 30 mg PO BID 30 Days Qty: 60 0RF chlorpromazine 50 mg tablet 50 mg PO BID PRN (Reason: panic) 30 Days Qty: 30 0RF Rx Instructions: take 1 to 2 tabs daily as needed for panic mirtazapine 15 mg Tablet 15 mg PO BEDTIME 30 Days Qty: 30 0RF trazodone 50 mg Tablet 150 mg PO BEDTIME 30 Days Qty: 90 0RF Anbesol (benzocaine) Max Str 20 % Gel 1 appl mucous membrane QID PRN (Reason: dental pain) 15 Days Qty: 9 0RF Protocol: Apply to: Apply to: R Lower Gum melatonin 3 mg Tablet 3 mg PO BEDTIME 30 Days Qty: 30 0RF prazosin 2 mg capsule 4 mg PO BEDTIME 30 Days Qty: 60 0RF Narcan 4 mg/actuation spray,non-aerosol 4 mg intranasal Q2M PRN (Reason: opioid overdose) Qty: 2 0RF Rx Instructions: spray 1 dose into ONE nostril; alternate nostrils w each dose until help arrives medroxyprogesterone [Depo-Provera] 150 mg/mL suspension 150 mg IM [id number] Qty: 1 3RF Referrals: [facility] [[place] Group] (Call to establish and follow up with a primary care provider. If you already have a primary care provider, please follow up with them. ) [facility] [place] [facility] [Provider Group] (Call to establish and follow up with a primary care provider. If you already have a primary care provider, please follow up with them. ) [facility] [place] [facility] [Provider Group] (Call to establish and follow up with a primary care provider. If you already have a primary care provider, please follow up with them. ) Interventions: ED Discharge Assessment Last Done: 05/05/22 16:17 Discharge Date/Time: 05/05/22 16:17 Print Language: Uzbek
--- NOTE | 2022-05-05 10:50 | MHC.EDTECH ---
Labs collected and sent
[2022-05-05 11:01] LABS: Basophils Percent Auto 0.3 % (0-2); Eosinophils Absolute Auto 0.1 X10*3/uL (0.0-0.4); Eosinophils Percent Auto 0.8 % (0-4); Hematocrit 42.1 % (37.0-47.0); Hemoglobin 13.9 g/dl (12.0-16.0); Imm Gran Abs Auto 0.05 X10*3/uL (0.00-0.03); Imm Gran Pct Auto 0.5 % (0.0-0.4); Lymphocytes Absolute Auto 2.2 X10*3/uL (1.2-4.9); Lymphocytes Percent Auto 22.2 % (20-40); MANUAL DIFF FLAG SCAN; Mean Corpuscular Hemoglobin 29.4 pg (27.0-33.0); Monocytes Absolute Auto 0.6 X10*3/uL (0.1-1.2); Monocytes Percent Auto 6.5 % (2-11); Neutrophils Absolute Auto 6.8 x10*3/uL (2.0-8.3); Neutrophils Percent Auto 69.7 % (45-73); PLT CLUMP 1; Red Blood Count 4.73 X10*6/uL (4.20-5.50); Red Cell Distribution Width 12.7 % (11.0-16.0); SCAN SMEAR FLAG 1
[2022-05-05 11:03] LABS: White Blood Count 9.8 X10*3/uL (4.8-10.8)
--- NOTE | 2022-05-05 11:04 | PC.NURSE ---
27 y/o F pw multiple complaints, odd affect, very difficult to follow pt storyline, pt states she had a seizure last night getting out of the bathtub, had a nose bleed, and then vomitted blood into the toilet. states she has continued N/V. states she just moved back into town and is trying to set up her psych appointments. pt vaping in stretcher, asked to please put away or it would have to be removed. labs drawn in triage. awaiting MD govea
[2022-05-05 11:14] LABS: Alanine Aminotransferase 28 U/L (0-31); Albumin Level 4.1 g/dL (3.5-5.0); Alkaline Phosphatase 77 U/L (39-117); Anion Gap 15 (12-20); Aspartate Amino Transferase 23 U/L (5-31); Bilirubin Total 0.4 mg/dL (0.0-1.0); Blood Urea Nitrogen 11 mg/dL (9-16); Carbon Dioxide 20 mmol/L (22-29); Chloride 110 mmol/L (96-108); Creatinine Clr Calc Pharmacy 112.8; Estimated Glomerular Filt Rate > 60; Glucose Random 166 mg/dL (60-115); Potassium 4.1 mmol/L (3.3-5.1); Sodium 141 mmol/L (135-145); Total Protein 6.6 g/dL (6.5-8.0)
[2022-05-05 11:24] LABS: Platelet Count 180 X10*3/uL (160-400); SLIDE REVIEW VERIFIED
[2022-05-05] MEDS: levETIRAcetam 1,000 MG TABLET 1000 MG PO (11:41)
[2022-05-05] MEDS: ondansetron HCL 4 MG/2 ML VIAL IVPUSH (11:41)
[2022-05-05] MEDS: Pantoprazole Sodium 40 MG/10 ML VIAL IVPUSH (11:41)
[2022-05-05] MEDS: Magnesium Hydrox/Alum Hydrox 30 ML ORAL.SUSP 15 ML PO (11:41)
[2022-05-05] MEDS: 0.9 % Sodium Chloride 1,000 ML 999 ML IV (11:42)
[2022-05-05 12:01] LABS: Lactic Acid 1.2 mmol/L (0.5-2.0)
[2022-05-05 12:24] LABS: HCG Quantitative < 2 mIU/mL
[2022-05-05 14:56] LABS: Appearance Urine Turbid; Color Urine Yellow; Glucose Urine UA Negative (Negative); Leukocyte Esterase Urine Trace (Negative); Nitrite Urine Negative (Negative); PH 8.5 (5.0-9.0); UMIC TRIGGER UACC YES; Urine Blood Negative (Negative); Urine Ketones Negative (Negative); Urine Protein Negative (Neg-Trace)
[2022-05-05 15:04] LABS: Amphetamine Screen Urine Not Detected (Not Detect); Barbiturates, Urine Not Detected (Not Detect); Benzodiazepines Screen Urine Not Detected (Not Detect); Cannabinoid Screen Urine POSITIVE (Not Detect); Cocaine Screen Urine POSITIVE (Not Detect); Fentanyl, urine Not Detected (Not Detect); Opiate Screen Urine Not Detected (Not Detect); Phencyclidine Screen Urine Not Detected (Not Detect)
[2022-05-05 15:09] LABS: Bacteria Urine None Seen (None Seen); Hyaline Casts Urine 0-2 /LPF (0-2); RBC Urine 0-2 /HPF (0-2); WBC Urine 0-5 /HPF (0-5)
== END 2022-05-05 16:17 | disposition home or self-care (01) ==
PROVIDERS: Physician Assistant Medical; Emergency Provider Emergency Medicine
DX: K92.0 Hematemesis (principal); K21.9 Gastro-esophageal reflux disease without esophagitis; R51.9 Headache, unspecified; R10.13 Epigastric pain; F17.200 Nicotine dependence, unspecified, uncomplicated; F14.90 Cocaine use, unspecified, uncomplicated; F11.90 Opioid use, unspecified, uncomplicated; Z71.6 Tobacco abuse counseling; Z79.899 Other long term (current) drug therapy
CPT/HCPCS: 36415; 70450; 74176; 80053; 80307; 81001; 83605; 84702; 85025; 96361; 96374; 96375; 99284; J2405

== ENCOUNTER 2022-09-11 07:46 | Emergency (ER) | payer MEDICAID, SELFPAY ==
[2022-09-11 07:54] VITALS: BP 135/81; BP 136/98; PULSE 106; PULSE 116; RESP 14; TEMP 36.3; O2SAT 97; O2SAT 98; BMI 30.1
--- NOTE | 2022-09-11 08:07 | ED.OVERDOSE ---
HPI - Overdose General Chief Complaint: Overdose Stated Complaint: overdose, narcan given Time Seen by Provider: 09/11/22 07:58 Source: patient and other (Friend) Mode of arrival: EMS Limitations: no limitations History of Present Illness HPI Narrative: 27-year-old female who presents emergency department for evaluation of accidental overdose on heroin. Patient states that she used 1 bag of intranasal heroin and took Ambien pill. The patient's friend who was with her states that the patient was very pale and was gasping for breath, she was unresponsive therefore he called 911. First responders gave her 1 dose of intranasal Narcan and the patient became awake and alert. She was then transported to the emergency department. In the emergency department, she refused to get undressed. She got off the stretcher and tried to exit the emergency department. I was able to convince her to come back into the emergency department sciatica talk to her examine her. 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 Related Data Previous Rx's Medication Instructions Recorded naloxone 4 mg/actuation nasal 4 mg intranasal Q2M PRN opioid 08/15/20 spray (Narcan) overdose #2 ea medroxyprogesterone 150 mg/mL 150 mg IM [id number] #1 mL 08/21/20 intramuscular suspension (Depo-Provera) aripiprazole 30 mg tablet (Abilify) 30 mg PO DAILY 30 days #30 tabs 06/01/21 benzocaine 20 % mucosal gel 1 appl mucous membrane QID PRN 06/01/21 (Anbesol (benzocaine) Maximum dental pain 15 days #9 grams Strength) benztropine 1 mg tablet 1 mg PO BID PRN EPS 30 days #60 06/01/21 tabs buspirone 30 mg tablet 30 mg PO BID 30 days #60 tabs 06/01/21 chlorpromazine 50 mg tablet 50 mg PO BID PRN panic 30 days #30 06/01/21 tabs melatonin 3 mg tablet 3 mg PO BEDTIME 30 days #30 tabs 06/01/21 mirtazapine 15 mg tablet 15 mg PO BEDTIME 30 days #30 tabs 06/01/21 nicotine (polacrilex) 2 mg gum 4 mg buccal Q1H PRN Nicotine 06/01/21 Cravings 30 days #100 ea prazosin 2 mg capsule 4 mg PO BEDTIME 30 days #60 caps 03/21/22 propranolol 80 mg capsule,24 80 mg PO DAILY 30 days #30 caps 06/01/21 hr,extended release trazodone 50 mg tablet 150 mg PO BEDTIME 30 days #90 tabs 06/01/21 Allergies Allergy/AdvReac Type Severity Reaction Status Date / Time No Known Allergies Allergy Verified 09/11/22 07:59 [No Known Allergies*] Review of Systems Review of Systems: Yes all other systems are reviewed and are negative [facility] Past Medical History [facility] Narrative: Past medical history: Reviewed below. Social history: She does smoke cigarettes. She denies alcohol use. She does admit to using intranasal heroin. Medical History Borderline personality disorder Cocaine abuse Contraceptive management Depression HSV-1 (herpes simplex virus 1) infection Medical non-compliance Opioid use disorder Polysubstance abuse Family History Family History Father Heart disease Thyroid cancer Mother No problems noted. Paternal Grandfather Cancer Maternal Grandfather Cancer Paternal Grandmother Cancer Social History Social History Household Members: Family and Other Housing: House Do you presently have visiting nurse or other home services: No Alcohol intake: never Patient Tobacco Use Status: Current someday Tobacco user Cigarette Packs Per Day: 1 Substance Use Type: Heroin Advance Directives Date on File: 05/27/21 service: No Physical Exam Vital Signs: Vital Signs: Last Vital Signs Temp 97.4 F 09/11/22 07:54 Pulse 106 H 09/11/22 07:54 Resp 14 09/11/22 07:54 BP 135/81 09/11/22 07:54 Pulse Ox 98 09/11/22 07:54 O2 Del Method Room Air 09/11/22 07:54 BMI result Body Mass Index 30.1 Const: General: cooperative and no acute distress Orientation/consciousness: oriented to person and oriented to place Limitations: no limitations HEENT: Head: Yes normal to inspection, Yes normocephalic and Yes atraumatic Ears: external ears normal General nose exam: Normal external nose present Face and sinus: Yes normal facial exam Mouth: Normal oral and palatal mucosa present Throat: Yes posterior oropharynx normal Eyes: General: appearance normal, both eyes and all related structures Pupils: Equal, round and reactive pupils present Neck: Neck: Yes normal visual inspection, Yes no lymphadenopathy, Yes trachea midline and Yes supple Chest: Chest palpation & inspection: normal inspection of the chest and normal palpation of entire chest wall Resp: Effort & Inspection: normal respiratory effort and able to speak in complete sentences Auscultation: clear to auscultation bilaterally Cardio: Rate: regular rate Rhythm: regular rhythm Heart sounds: S1 normal heart sound present, S2 normal heart sound present and no murmurs GI: Inspection: Yes normal to inspection Palpation (GI): Soft to palpation, nontender and no guarding Auscultation: normal bowel sounds : General: Yes no CVA tenderness Back/Spine/Pelvis: Back: no CVA tenderness Skin: General skin exam: no rashes or lesions noted Neuro: General: oriented to person and oriented to place Cranial nerves: Yes CN's II-XII intact bilaterally and Yes Equal, round and reactive pupils present Cognition (Neuro): normal cognition Motor exam (neuro): 5/5 motor strength present throughout Extrem: General: Yes normal to inspection Psych: Appearance: grossly normal Speech and movement: Normal speech and movement present Affect: normal affect Attitude: cooperative Thought process: Normal thought process present Thought content: Normal thought content present Medical Decision Making Medical Decision Making MDM Narrative: 27-year-old female who presents emergency department for evaluation of unintentional overdose on opiates. Patient admits to using 1 bag of intranasal heroin and taking 1 Ambien pill. Patient was found unresponsive with poor respirations by a friend who called 911. Patient was given 1 dose of intranasal Narcan with reversal of her narcosis. Patient was evaluated and examined. The patient does not want to stay in the emergency department for observation to make sure she does not going to narcosis again. 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 Therefore the patient was allowed to leave against medical advice. She was given intranasal Narcan rescue pack and advised on how to use it. She was also told that if she changes her mind, wants to get help with her addiction or further counseling she should return to the emergency department he we will help her. Differential Diagnosis Differential diagnosis includes was not limited to heroin overdose, fentanyl overdose, polysubstance use disorder Discharge Plan Discharge Clinical Impression: Opioid use disorder, Overdose Patient Disposition: Left Against Medical Advice Instructions: Opioid Use Disorder (ED) Additional Instructions: You accidentally overdosed on opiates. Most heroin has fentanyl in it and fentanyl is the drugs that is killing people that use heroin. You were treated with intranasal Narcan which saved your life today. I recommended that you stay in the hospital for at least 2 hours so they can watch you to make sure that you do not pass out and stop breathing again. However, you do not want a stay and you understand the consequences leave, therefore we are letting you leave against medical advice. If you change your mind and want to get counseling or get help with your addiction please return to the emergency department and we can help you. Your are being discharged home with intranasal Narcan. If you are going to continue to use heroin, you should make sure that there is a sober person with you that is not using drugs and that this person can administer intranasal Narcan in the event that you stop breathing. Follow-up with your doctor in 2 days. Please return to the emergency department if your symptoms get worse or if you develop any symptoms that are concerning to you. Prescriptions: No Action nicotine (polacrilex) 2 mg Gum 4 mg buccal Q1H PRN (Reason: Nicotine Cravings) 30 Days Qty: 100 0RF propranolol 80 mg Capsule,Extended Release 24 Hr 80 mg PO DAILY 30 Days Qty: 30 0RF Protocol: Hold for SBP/HR < HOLD for SBP < : 90 HOLD for HR < : 60 aripiprazole [Abilify] 30 mg Tablet 30 mg PO DAILY 30 Days Qty: 30 0RF benztropine 1 mg Tablet 1 mg PO BID PRN (Reason: EPS) 30 Days Qty: 60 0RF buspirone 30 mg tablet 30 mg PO BID 30 Days Qty: 60 0RF chlorpromazine 50 mg tablet 50 mg PO BID PRN (Reason: panic) 30 Days Qty: 30 0RF Rx Instructions: take 1 to 2 tabs daily as needed for panic mirtazapine 15 mg Tablet 15 mg PO BEDTIME 30 Days Qty: 30 0RF trazodone 50 mg Tablet 150 mg PO BEDTIME 30 Days Qty: 90 0RF Anbesol (benzocaine) Max Str 20 % Gel 1 appl mucous membrane QID PRN (Reason: dental pain) 15 Days Qty: 9 0RF Protocol: Apply to: Apply to: R Lower Gum melatonin 3 mg Tablet 3 mg PO BEDTIME 30 Days Qty: 30 0RF prazosin 2 mg capsule 4 mg PO BEDTIME 30 Days Qty: 60 0RF Narcan 4 mg/actuation spray,non-aerosol 4 mg intranasal Q2M PRN (Reason: opioid overdose) Qty: 2 0RF Rx Instructions: spray 1 dose into ONE nostril; alternate nostrils w each dose until help arrives medroxyprogesterone [Depo-Provera] 150 mg/mL suspension 150 mg IM [id number] Qty: 1 3RF Stand Alone Forms: Against Medical Advice
--- NOTE | 2022-09-11 08:09 | PC.NURSE ---
md at bedside evaluating pt, pt is refusing to stay and is explained the possibility of narcan stop working and the possibility of not breathing again, pt does have a sober ride at bedside will be signing out ama
== END 2022-09-11 08:18 | disposition left against medical advice (07) ==
PROVIDERS: Emergency Provider Emergency Medicine Emergency Medical Services
DX: R40.4 Transient alteration of awareness (principal); T40.1X1A Poisoning by heroin, accidental (unintentional), initial encounter; T42.6X1A Poisoning by other antiepileptic and sedative-hypnotic drugs, accidental (unintentional), initial encounter; Y92.9 Unspecified place or not applicable; F60.3 Borderline personality disorder; F43.12 Post-traumatic stress disorder, chronic; F19.10 Other psychoactive substance abuse, uncomplicated; F11.99 Opioid use, unspecified with unspecified opioid-induced disorder; F17.210 Nicotine dependence, cigarettes, uncomplicated
CPT/HCPCS: 99283; 99284

== ENCOUNTER 2023-01-29 19:44 | Emergency (ER) | payer MEDICAID, SELFPAY ==
[2023-01-29 19:51] VITALS: BP 158/83; PULSE 89; RESP 16; TEMP 37.1; O2SAT 98; BMI 27.3
== END 2023-01-29 22:27 | disposition left against medical advice (07) ==
PROVIDERS: Emergency Provider Emergency Medicine
DX: M25.531 Pain in right wrist (principal)
CPT/HCPCS: 99281

== ENCOUNTER 2023-01-30 10:36 | Emergency (ER) | payer MEDICAID, SELFPAY ==
--- NOTE | ~2023-01-30 | XR_ITS ---
EXAMINATION: XR WRIST, RIGHT XR HAND, RIGHT CLINICAL INFORMATION: Pain and swelling COMPARISON: None available. TECHNIQUE: 3 views of the left hand and wrist FINDINGS: Comminuted mildly displaced and impacted fracture of the distal radius with slight apex ventral angulation. Prominent soft tissue swelling overlying the dorsum of the carpal bones wrist and forearm joint space alignment are otherwise maintained. Soft tissues are unremarkable. XR/XR hand wrist RT IMPRESSION: 1. Comminuted mildly displaced and impacted fracture of the distal radius with slight apex ventral angulation. 2. Prominent soft tissue swelling overlying the dorsum of the carpal bones, wrist and forearm.
[2023-01-30 10:44] VITALS: BP 149/100; PULSE 97; RESP 20; TEMP 36.6; O2SAT 98; BMI 28.6
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
[2023-01-30 11:19] VITALS: RESP 20
[2023-01-30] MEDS: Morphine Sulfate 4 MG/ML CARTRIDGE IM (11:19)
== END 2023-01-30 12:19 | disposition left against medical advice (07) ==
PROVIDERS: Emergency Provider Emergency Medicine
DX: S52.501A Unspecified fracture of the lower end of right radius, initial encounter for closed fracture (principal); M25.531 Pain in right wrist; M25.431 Effusion, right wrist; F17.210 Nicotine dependence, cigarettes, uncomplicated; W10.9XXA Fall (on) (from) unspecified stairs and steps, initial encounter; Y93.9 Activity, unspecified; Y92.9 Unspecified place or not applicable; Y99.9 Unspecified external cause status; Z79.899 Other long term (current) drug therapy; Z71.6 Tobacco abuse counseling
CPT/HCPCS: 73110; 73130; 96372; 99283; 99284; J2270

== ENCOUNTER 2023-02-01 13:27 | Emergency (ER) | payer MEDICAID, SELFPAY ==
--- NOTE | ~2023-02-01 | XR_ITS ---
EXAMINATION: XR WRIST, RIGHT XR HAND, RIGHT CLINICAL INFORMATION: Fracture COMPARISON: 01/30/2023 TECHNIQUE: PA, lateral, and oblique views of the right wrist and PA, lateral, and oblique views of the right hand FINDINGS: RIGHT WRIST: Comminuted intra-articular fracture of the distal radius with dorsal angulation and slight impaction, not significantly changed. Slightly displaced avulsion fracture of the ulnar styloid. RIGHT HAND: Marked dorsal soft tissue swelling. No metacarpal or finger fracture. XR/XR hand wrist RT IMPRESSION: Comminuted intra-articular fracture of the distal radius with dorsal angulation and slight impaction, not significantly changed. Slightly displaced avulsion fracture of the ulnar styloid.
[2023-02-01 13:35] VITALS: BP 146/86; PULSE 100; RESP 19; TEMP 36.6; O2SAT 95; BMI 25.0
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
[2023-02-01] MEDS: Ibuprofen 800 MG TABLET PO (17:56)
== END 2023-02-01 18:15 | disposition home or self-care (01) ==
PROVIDERS: Emergency Provider Emergency Medicine
DX: S52.501A Unspecified fracture of the lower end of right radius, initial encounter for closed fracture (principal); S52.611A Displaced fracture of right ulna styloid process, initial encounter for closed fracture; M79.601 Pain in right arm; M79.89 Other specified soft tissue disorders; M25.531 Pain in right wrist; F17.210 Nicotine dependence, cigarettes, uncomplicated; Y04.2XXA Assault by strike against or bumped into by another person, initial encounter; Y93.9 Activity, unspecified; Y92.9 Unspecified place or not applicable; Y99.9 Unspecified external cause status; Z79.899 Other long term (current) drug therapy; Z71.6 Tobacco abuse counseling
CPT/HCPCS: 29125; 73110; 73130; 99283

== ENCOUNTER 2023-02-08 10:53 | Outpatient (REF) | payer MEDICAID, SELFPAY | END 2023-02-08 10:54 | disposition home or self-care (01) | LOC: HO.HOSX 10:53 | PROVIDERS: Visit Provider Orthopaedic Surgery | DX: Z13.89 Encounter for screening for other disorder (principal) ==

== ENCOUNTER 2023-02-09 08:28 | Outpatient (REF) | payer MEDICAID, SELFPAY ==
--- NOTE | ~2023-02-09 | XR_ITS ---
EXAMINATION: XR WRIST, RIGHT CLINICAL INFORMATION: Right wrist pain COMPARISON: Right wrist x-rays on 02/01/2023 TECHNIQUE: PA, lateral, and oblique views of the right wrist. FINDINGS: BONES: Persistent comminuted fracture distal right radial metaphysis with mild impaction and moderate dorsal angulation, fracture line extending to the distal right radial articular surface are seen. Additional fracture tip of right ulna styloid process is present with mild distal displacement. No significant callus formation could be seen. JOINTS: Alignment of joints is normal. SOFT TISSUE: Soft tissue is normal. No radiopaque foreign body or abnormal air collection is seen. XR/XR wrist RT min 3V IMPRESSION: 1. Unchanged comminuted fracture distal right radial metaphysis with mild impaction and moderate dorsal angulation. 2. Unchanged right ulna styloid tip avulsion fracture.
== END 2023-02-09 08:29 | disposition home or self-care (01) ==
LOC: HO.HOSX 08:28
PROVIDERS: Visit Provider Orthopaedic Surgery
DX: S52.501A Unspecified fracture of the lower end of right radius, initial encounter for closed fracture (principal); S52.611A Displaced fracture of right ulna styloid process, initial encounter for closed fracture; G56.01 Carpal tunnel syndrome, right upper limb; F60.3 Borderline personality disorder; F19.10 Other psychoactive substance abuse, uncomplicated; F43.12 Post-traumatic stress disorder, chronic
CPT/HCPCS: 73110; 99202

== ENCOUNTER 2023-02-09 10:39 | Outpatient (AMB) | payer MEDICAID, SELFPAY ==
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
[2023-02-09 11:12] VITALS: BMI 25.0
== END 2023-02-09 12:01 | disposition home or self-care (01) ==
PROVIDERS: Visit Provider Orthopaedic Surgery
DX: S52.501A Unspecified fracture of the lower end of right radius, initial encounter for closed fracture (principal); S52.611A Displaced fracture of right ulna styloid process, initial encounter for closed fracture; V00-Y99 External causes of morbidity; G56.01 Carpal tunnel syndrome, right upper limb; F43.12 Post-traumatic stress disorder, chronic; F60.3 Borderline personality disorder; F19.10 Other psychoactive substance abuse, uncomplicated
CPT/HCPCS: 99204

== ENCOUNTER → 2023-02-10 06:45 | Day surgery (SDC) | payer MEDICAID, SELFPAY ==
--- NOTE | 2023-02-10 06:59 | PC.NURSE ---
Pt arrived to pre-op. Unable to keep eyes open, unable to ambulate safely. Pt reports I am tired. Its not drugs. This marketing underwriter notified surgical team with concerns and is awaiting response for plan moving forward.
[2023-02-10 07:10] VITALS: BP 127/82; PULSE 71; RESP 16; TEMP 36.4; O2SAT 95
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
== END ==
PROVIDERS: Visit Provider Orthopaedic Surgery
DX: G56.01 Carpal tunnel syndrome, right upper limb (principal); Z53.20 Procedure and treatment not carried out because of patient's decision for unspecified reasons; S52.501A Unspecified fracture of the lower end of right radius, initial encounter for closed fracture; W51.XXXA Accidental striking against or bumped into by another person, initial encounter; Y93.9 Activity, unspecified; Y92.9 Unspecified place or not applicable; Y99.9 Unspecified external cause status

== ENCOUNTER 2023-02-10 07:57 | Emergency (ER) | payer MEDICAID, SELFPAY ==
--- NOTE | 2023-02-10 08:13 | PC.NURSE ---
PT BROUGHT FROM OR IN W/C. SIGNED IN BY OR, THEN PT REFUSED TO BE SEEN
--- NOTE | 2023-02-10 08:16 | ED_ITS ---
HPI - Altered Mental Status General Stated Complaint: Sepsis Time Seen by Provider: 02/10/23 07:59 Source: other (Anesthesiologist, Hermilo Thomas) History of Present Illness HPI narrative: 27-year-old female who was sent from the OR the patient was scheduled for an e lective wrist fracture repair. Patient was altered and the anesthesiologist was concerned that the patient may be septic. Therefore the patient was brought to the emergency department. Patient was brought immediately to a room and for I could get in to see her, she told the nurses that she did out by a testing or treatment and she left without being seen. Related Data Previous Rx's Medication Instructions Recorded naloxone 4 mg/actuation nasal 4 mg intranasal Q2M PRN opioid 08/15/20 spray (Narcan) overdose #2 ea medroxyprogesterone 150 mg/mL 150 mg IM [id number] #1 mL 08/21/20 intramuscular suspension (Depo-Provera) aripiprazole 30 mg tablet (Abilify) 30 mg PO DAILY 30 days #30 tabs 06/01/21 benzocaine 20 % mucosal gel 1 appl mucous membrane QID PRN 06/01/21 (Anbesol (benzocaine) Maximum dental pain 15 days #9 grams Strength) benztropine 1 mg tablet 1 mg PO BID PRN EPS 30 days #60 06/01/21 tabs buspirone 30 mg tablet 30 mg PO BID 30 days #60 tabs 06/01/21 chlorpromazine 50 mg tablet 50 mg PO BID PRN panic 30 days #30 06/01/21 tabs melatonin 3 mg tablet 3 mg PO BEDTIME 30 days #30 tabs 06/01/21 mirtazapine 15 mg tablet 15 mg PO BEDTIME 30 days #30 tabs 06/01/21 nicotine (polacrilex) 2 mg gum 4 mg buccal Q1H PRN Nicotine 06/01/21 Cravings 30 days #100 ea prazosin 2 mg capsule 4 mg (2 x 2 mg) PO BEDTIME 30 days 06/01/21 #60 caps propranolol 80 mg capsule,24 80 mg PO DAILY 30 days #30 caps 06/01/21 hr,extended release trazodone 50 mg tablet 150 mg (3 x 50 mg) PO BEDTIME 30 06/01/21 days #90 tabs acetaminophen 500 mg tablet 500 mg PO Q6H PRN fever or pain 11/21/23 (Tylenol Extra Strength) #14 tabs ibuprofen 800 mg tablet 800 mg PO Q8H PRN pain #14 tabs 02/01/23 ibuprofen 600 mg tablet 600 mg PO BID PRN pain #20 tabs 02/09/23 Allergies Allergy/AdvReac Type Severity Reaction Status Date / Time No Known Allergies Allergy Verified 02/09/23 11:19 [No Known Allergies*] [facility] Past Medical History Medical History Borderline personality disorder Polysubstance abuse Cocaine abuse Medical non-compliance HSV-1 (herpes simplex virus 1) infection Contraceptive management Opioid use disorder Depression Family History Family History Father Heart disease Thyroid cancer Mother No problems noted. Paternal Grandfather Cancer Maternal Grandfather Cancer Paternal Grandmother Cancer Social History Social History Household Members: Family and Other Housing: House Do you presently have visiting nurse or other home services: No Alcohol intake: never Patient Tobacco Use Status: Current everyday Tobacco user Cigarette Packs Per Day: 1 Cigarettes Per Day: 5 Substance Use Type: Marijuana Advance Directives Date on File: 05/27/21 service: No Discharge Plan Discharge Clinical Impression: Patient left without being seen Patient Disposition: Left Against Medical Advice Prescriptions: No Action nicotine (polacrilex) 2 mg Gum 4 mg buccal Q1H PRN (Reason: Nicotine Cravings) 30 Days Qty: 100 0RF propranolol 80 mg Capsule,Extended Release 24 Hr 80 mg PO DAILY 30 Days Qty: 30 0RF Protocol: Hold for SBP/HR < HOLD for SBP < : 90 HOLD for HR < : 60 aripiprazole [Abilify] 30 mg Tablet 30 mg PO DAILY 30 Days Qty: 30 0RF benztropine 1 mg Tablet 1 mg PO BID PRN (Reason: EPS) 30 Days Qty: 60 0RF buspirone 30 mg tablet 30 mg PO BID 30 Days Qty: 60 0RF chlorpromazine 50 mg tablet 50 mg PO BID PRN (Reason: panic) 30 Days Qty: 30 0RF Rx Instructions: take 1 to 2 tabs daily as needed for panic mirtazapine 15 mg Tablet 15 mg PO BEDTIME 30 Days Qty: 30 0RF trazodone 50 mg Tablet 150 mg PO BEDTIME 30 Days Qty: 90 0RF Anbesol (benzocaine) Max Str 20 % Gel 1 appl mucous membrane QID PRN (Reason: dental pain) 15 Days Qty: 9 0RF Protocol: Apply to: Apply to: R Lower Gum melatonin 3 mg Tablet 3 mg PO BEDTIME 30 Days Qty: 30 0RF prazosin 2 mg capsule 4 mg PO BEDTIME 30 Days Qty: 60 0RF ibuprofen 800 mg tablet 800 mg PO Q8H PRN (Reason: pain) Qty: 14 0RF acetaminophen [Tylenol Extra Strength] 500 mg tablet 500 mg PO Q6H PRN (Reason: fever or pain) Qty: 14 0RF Narcan 4 mg/actuation spray,non-aerosol 4 mg intranasal Q2M PRN (Reason: opioid overdose) Qty: 2 0RF Rx Instructions: spray 1 dose into ONE nostril; alternate nostrils w each dose until help arrives medroxyprogesterone [Depo-Provera] 150 mg/mL suspension 150 mg IM [id number] Qty: 1 3RF ibuprofen 600 mg tablet 600 mg PO BID PRN (Reason: pain) Qty: 20 0RF Discharge Date/Time: 02/10/23 08:21
== END 2023-02-10 08:21 | disposition left against medical advice (07) ==
LOC: HO.ED 08:18
PROVIDERS: Emergency Provider Emergency Medicine
DX: M25.539 Pain in unspecified wrist (principal)

== ENCOUNTER 2023-02-11 10:47 | Outpatient (AMB) | payer MEDICAID, SELFPAY ==
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
[2023-02-11 11:08] VITALS: BMI 25.0
== END 2023-02-11 12:38 | disposition home or self-care (01) ==
PROVIDERS: Visit Provider Physician Assistant
DX: S52.611A Displaced fracture of right ulna styloid process, initial encounter for closed fracture (principal); S52.501A Unspecified fracture of the lower end of right radius, initial encounter for closed fracture; L02.229 Furuncle of trunk, unspecified
CPT/HCPCS: 29085; 99213

== ENCOUNTER → 2023-02-11 10:47 | Outpatient (BNVA) | payer MEDICAID, SELFPAY | PROVIDERS: Visit Provider Physician Assistant | DX: S52.611D Displaced fracture of right ulna styloid process, subsequent encounter for closed fracture with routine healing (principal); S52.501D Unspecified fracture of the lower end of right radius, subsequent encounter for closed fracture with routine healing; L02.229 Furuncle of trunk, unspecified | CPT/HCPCS: 29085; 99213 ==

== ENCOUNTER 2023-03-16 09:05 | Outpatient (REF) | payer MEDICAID, SELFPAY | END 2023-03-16 09:06 | disposition home or self-care (01) | LOC: HO.HOSX 09:05 | PROVIDERS: Visit Provider Orthopaedic Surgery | DX: M25.531 Pain in right wrist (principal); G56.01 Carpal tunnel syndrome, right upper limb; S52.611A Displaced fracture of right ulna styloid process, initial encounter for closed fracture; W03.XXXA Other fall on same level due to collision with another person, initial encounter; Y93.9 Activity, unspecified; Y92.9 Unspecified place or not applicable; Y99.8 Other external cause status; L02.229 Furuncle of trunk, unspecified; F43.12 Post-traumatic stress disorder, chronic; F60.3 Borderline personality disorder; F19.10 Other psychoactive substance abuse, uncomplicated | CPT/HCPCS: 29085; 73110; 99212 ==

== ENCOUNTER 2023-03-16 09:21 | Outpatient (AMB) | payer MEDICAID, SELFPAY ==
[2023-03-16 09:32] VITALS: BMI 25.0
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
== END 2023-03-16 10:34 | disposition home or self-care (01) ==
PROVIDERS: PCP Family Medicine; Referring Provider Family Medicine; Visit Provider Orthopaedic Surgery
DX: S52.611A Displaced fracture of right ulna styloid process, initial encounter for closed fracture (principal); S52.501A Unspecified fracture of the lower end of right radius, initial encounter for closed fracture; G56.01 Carpal tunnel syndrome, right upper limb; L02.229 Furuncle of trunk, unspecified
CPT/HCPCS: 29085; 99214

== ENCOUNTER 2023-03-30 10:47 | Outpatient (REF) | payer MEDICAID, SELFPAY | END 2023-03-30 10:48 | disposition home or self-care (01) | LOC: HO.HOSX 10:47 | PROVIDERS: Visit Provider Orthopaedic Surgery | DX: Z13.89 Encounter for screening for other disorder (principal) ==

== ENCOUNTER 2023-04-08 10:24 | Outpatient (REF) | payer MEDICAID, SELFPAY | END 2023-04-08 10:25 | disposition home or self-care (01) | LOC: HO.HOSX 10:24 | PROVIDERS: Visit Provider Physician Assistant | DX: Z13.89 Encounter for screening for other disorder (principal) ==

== ENCOUNTER 2023-04-20 12:11 | Outpatient (REF) | payer MEDICAID, SELFPAY | END 2023-04-20 12:12 | disposition home or self-care (01) | LOC: HO.HOSX 12:11 | PROVIDERS: Visit Provider Physician Assistant | DX: Z13.89 Encounter for screening for other disorder (principal) ==

== ENCOUNTER 2023-05-27 00:44 | Emergency (ER) | payer OTHER, SELFPAY ==
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
[2023-05-27 01:10] VITALS: BMI 23.4
[2023-05-27 01:21] VITALS: BP 0/0; PULSE 0; RESP 0; TEMP -17.7; TEMP 0
== END 2023-05-27 01:28 | disposition home or self-care (01) ==
PROVIDERS: Emergency Provider Emergency Medicine
DX: F41.9 Anxiety disorder, unspecified (principal)
CPT/HCPCS: 99282

== ENCOUNTER 2023-08-31 09:52 | Outpatient (REF) | payer OTHER, SELFPAY ==
--- NOTE | ~2023-08-31 | XR_ITS ---
EXAMINATION: XR WRIST, RIGHT CLINICAL INFORMATION: Pain in right wrist. COMPARISON: March 16, 2023, February 09, 2023. TECHNIQUE: PA, lateral, and oblique views of the right wrist. FINDINGS: The bones are diffusely demineralized. Status post ORIF with plate and multiple screws transfixing previously identified comminuted intra-articular fracture of the distal radius. Hardware appears intact. There has been interval bridging callus formation. Alignment improved. Redemonstration of slightly displaced evulsion fracture of the ulnar styloid. XR/XR wrist RT min 3V IMPRESSION: Status post ORIF with plate and multiple screws transfixing previously identified comminuted intra-articular fracture of the distal radius. Hardware appears intact. There has been interval bridging callus formation. Alignment improved.
== END 2023-08-31 09:53 | disposition home or self-care (01) ==
LOC: HO.HOSX 09:52
PROVIDERS: Visit Provider Orthopaedic Surgery
DX: M25.531 Pain in right wrist (principal); S52.501P Unspecified fracture of the lower end of right radius, subsequent encounter for closed fracture with malunion; Y04.2XXD Assault by strike against or bumped into by another person, subsequent encounter; W10.8XXD Fall (on) (from) other stairs and steps, subsequent encounter
CPT/HCPCS: 73110; 99212

== ENCOUNTER 2023-08-31 09:52 | Outpatient (AMB) | payer OTHER, SELFPAY ==
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
== END 2023-08-31 10:41 | disposition home or self-care (01) ==
PROVIDERS: Visit Provider Orthopaedic Surgery
DX: S52.501P Unspecified fracture of the lower end of right radius, subsequent encounter for closed fracture with malunion (principal)
CPT/HCPCS: 99213

== ENCOUNTER 2023-10-07 08:51 | Outpatient (REF) | payer MEDICAID, SELFPAY ==
[2023-10-07 14:05] LABS: MANUAL DIFF FLAG NO
[2023-10-07 14:13] LABS: Basophils Percent Auto 0.7 % (0-2); Eosinophils Absolute Auto 0.1 X10*3/uL (0.0-0.4); Eosinophils Percent Auto 1.5 % (0-4); Hemoglobin 12.7 g/dl (12.0-16.0); Imm Gran Abs Auto 0.02 X10*3/uL (0.00-0.03); Imm Gran Pct Auto 0.3 % (0.0-0.4); Lymphocytes Absolute Auto 2.3 X10*3/uL (1.2-4.9); Lymphocytes Percent Auto 38.8 % (20-40); Mean Corpuscular HGB Conc 32.6 g/dl (31.0-35.0); Mean Corpuscular Hemoglobin 29.3 pg (27.0-33.0); Mean Corpuscular Volume 89.9 fL (80.0-98.0); Mean Platelet Volume 10.7 fL (9.4-12.3); Monocytes Absolute Auto 0.5 X10*3/uL (0.1-1.2); Monocytes Percent Auto 8.5 % (2-11); Neutrophils Absolute Auto 2.9 x10*3/uL (2.0-8.3); Neutrophils Percent Auto 50.2 % (45-73); Platelet Count 269 X10*3/uL (160-400); Red Blood Count 4.34 X10*6/uL (4.20-5.50); Red Cell Distribution Width 12.2 % (11.0-16.0); White Blood Count 5.9 X10*3/uL (4.8-10.8)
[2023-10-07 14:30] LABS: Alanine Aminotransferase 17 U/L (0-31); Albumin Level 3.8 g/dL (3.5-5.0); Alkaline Phosphatase 69 U/L (39-117); Anion Gap 14 (12-20); Aspartate Amino Transferase 14 U/L (5-31); Bilirubin Total 0.2 mg/dL (0.0-1.0); Blood Urea Nitrogen 15 mg/dL (9-16); Calcium 9.1 mg/dL (8.4-10.2); Carbon Dioxide 25 mmol/L (22-29); Chloride 104 mmol/L (96-108); Cholesterol 251 mg/dL (<200); Estimated Glomerular Filt Rate > 60; Glucose Random 119 mg/dL (60-115); HDL Cholesterol 58 mg/dL (>40); LDL Cholesterol Calculated 162 mg/dL (<100); Potassium 4.2 mmol/L (3.3-5.1); Sodium 139 mmol/L (135-145); Total Protein 6.4 g/dL (6.5-8.0); Triglycerides 158 mg/dL (<150)
[2023-10-07 14:48] LABS: Insulin 78 uU/mL (2-29); Vitamin D 25-OH Total 35.4 ng/mL (>30)
[2023-10-07 16:07] LABS: HIV AB/AG Nonreactive (Nonreactive); HIV Num 1 0.05 S/CO (0.00-0.99); ~HepC Num1 15.12 S/CO (0.00-0.79); ~Hepatitis C Antibody Reactive (Nonreactive)
[2023-10-11 13:34] LABS: HCV Log PCR <1.18 NOT DETECTED Log IU/mL (NOT DETECTED); HepC Viral Load <15 NOT DETECTED IU/mL (NOT DETECTED)
== END 2023-10-07 08:52 | disposition home or self-care (01) ==
LOC: HO.CHCLDS 08:51
PROVIDERS: Visit Provider Family Medicine
DX: Z00.00 Encounter for general adult medical examination without abnormal findings (principal); E66.9 Obesity, unspecified; Z68.35 Body mass index [BMI] 35.0-35.9, adult
CPT/HCPCS: 36415; 80053; 80061; 82306; 83525; 85025; 86803; 87389; 87522